=== PATIENT | male | born 1950 | race Caucasian/White ===

== ENCOUNTER 2019-03-03 01:19 | Outpatient (CLI) | payer OTHER, SELFPAY ==
--- NOTE | 2019-03-03 10:19 | DI.CT_ITS ---
EXAM: CT HEAD WO CLINICAL HISTORY: BLACKOUTS PERIODICALLY, WEEKLY, HEADACHES. TECHNIQUE: COMPARISON: No exams were available for comparison FINDINGS: Noncontrast enhanced examination was performed. There is no evidence of an intra or extra-axial hemo rrhage. Earl-white matter distinction is preserved. There is nothing to suggest a territorial infar ct. The ventricles are unremarkable. There is no skull fracture. The paranasal sinuses are intact the mastoid air cells are preserved. No acute intracranial abnormality is demonstrated. If there is further strong specific clinical question regarding the status of this patient then a follow up MRI could be considered. . IMPRESSION:
== END 2019-03-03 01:39 ==
PROVIDERS: PCP Internal Medicine; Visit Provider Physician Assistant Medical
DX: R51 Headache (principal); R55 Syncope and collapse
CPT/HCPCS: 70450

== ENCOUNTER 2021-01-11 04:07 | Outpatient (CLI) | payer OTHER, SELFPAY ==
--- NOTE | 2021-01-17 13:06 | PDOC.EEG ---
Neurology EEG EEG: [facility] Department of Neurology EEG REPORT Date of Recordin01/11/21 Interpreting Physician: Dr. Elle Sierra PCP/Referring Provider: Dr. Chava Dove Reason for study: Mr. Dave is a 70 year-old man with a history of recurrent spells, concerning for seizure. Current Medications: Donepezil 10mg, duloxetine 60mg daily, Entanercept injections, methotrexate, pravastatin, tamsulosin. METHODS: A 21 channel digitized electroencephalogram was performed in the [facility]iology Laboratory. The 10/20 international system of electrode placement was used and bipolar and referential electrode montages were recorded. In addition to EEG the patient was monitored for EKG and lateral/vertical eye movements. Activation procedures of photic stimulation and hyperventilation were performed if applicable. Video was used during activation procedures and during events where applicable. The duration of the recording was 30 minutes. DESCRIPTION OF EEG: The patient was noted to be awake, drowsy, and asleep during the recording. During maximal wakefulness no discernible posterior background rhythm was present due to very low amplitudes throughout. This improved with drowsiness and sleep during which normal amplitudes were seen. During drowsiness, there was attenuation of the posterior dominant background rhythm and vertex waves. No stage II sleep was recorded. Activating Procedures: Photic stimulation was performed which produced a symmetrical posterior driving response at various flash frequencies. Hyperventilation was not performed due to age. EKG: EKG revealed normal sinus rhythm. INTERPRETATION: This EEG is normal during the awake and sleep states as well as during photic stimulation. PRIOR EEG: none CLINICAL CORRELATION: No focal regions of cerebral dysfunction or epileptiform activity was present. Epilepsy remains a clinical diagnosis and a normal EEG does not rule out epilepsy. Clinical correlation is advised. Elle Sierra MD
== END 2021-01-11 04:08 | disposition home or self-care (01) ==
LOC: RT 04:09
PROVIDERS: PCP Internal Medicine; Visit Provider Psychiatry & Neurology Neurology
DX: R29.818 Other symptoms and signs involving the nervous system (principal); R56.9 Unspecified convulsions
CPT/HCPCS: 95819

== ENCOUNTER 2022-01-21 15:30 | Emergency (ER) | payer OTHER, SELFPAY ==
--- NOTE | 2022-01-21 15:30 | DI.CT_ITS ---
Exam(s) CT CHEST/ABD/PEL W EXAM: CT CHEST/ABD/PEL W CLINICAL HISTORY: fall from tractor, left chest and abdominal pain. TECHNIQUE: Imaging Protocol: Axial computed tomography images with coronal and sagittal reformatted images were created and reviewed CONTRAST MATERIAL: Intravenous: Omnipaque 350 Contrast volume:100 ml Oral: None COMPARISON: CT RENAL COLIC WO CONTRAST from 02/24/2013 FINDINGS: CHEST: LUNGS: No evidence of lung contusion or pleural effusion or pneumothorax. No incidental lung masses. No significant findings in the trachea and mainstem bronchi.. MEDIASTINUM: No sternal fracture. Significant degenerative changes noted at the right sternoclavicul ar joint. No evidence of mediastinal hematoma. No hilar nor mediastinal adenopathy. Visualized thy roid unremarkable. CARDIAC: Heart size is normal. There is no pericardial effusion.Caliber thoracic aorta is within nor mal limits. No evidence of significant aortic trauma nor dissection. No mediastinal hematoma. OSSEOUS: There is fragmentation of the a chromium of the right shoulder. Correlation with site of te nderness recommended. This may be not posttraumatic but possibly related to an element of os acromia le. Similar findings are not seen on the opposite-left side. No actual clavicle fracture. No other scapular findings. No rib fractures.No osseous lesions.. ABDOMEN: There is no ascites. No evidence of bowel wall nor mesenteric hematoma. No free fluid nor free air. LIVER: No a patent laceration nor other focal findings in the liver. No dilated intrahepatic ducts. GALLBLADDER/BILIARY: Gallbladder not seen and is probably surgically absent (no clips). CBD is not d ilated. PANCREAS: No evidence of pancreatic mass nor dilatation of the pancreatic duct. SPLEEN: No splenic lacerations. No perisplenic fluid. Spleen size normal. No splenic lesions. Spl enic and portal veins are patent. Splenic and portal veins are patent. ADRENALS: There are no significant adrenal masses. KIDNEYS: No evidence of significant renal trauma. No renal lacerations nor subcapsular hematomas. I ncidentally noted is developmental mild rotation of the right kidney. The right renal pelvis is loca fariha anterolaterally. No hydronephrosis on either side. No calculi. No obvious abnormalities in the urinary bladder although the prostate is enlarged.. ABDOMINAL AORTA: Abdominal aorta exhibits mild fusiform dilatation. Maximum diameter, however, is le ss than 2.5 cm. No significant aneurysm is evident in the iliac arteries and common femoral arteries . LYMPH NODES: There is no retroperitoneal nor paraaortic adenopathy. ABDOMINAL WALL: No evidence of significant anterior abdominal wall nor inguinal hernia. GI: There is no evidence of bowel obstruction. PELVIS: LYMPH NODES: There is no intrapelvic nor inguinal adenopathy. GI: No evidence of appendicitis.Extensive sigmoid diverticulosis. No obvious acute diverticulitis. No free fluid. URINARY BLADDER: No calculi nor masses evident REPRODUCTIVE: Enlarged prostate gland. OSSEOUS: There are acute appearing fractures of the left transverse processes of L1, L2, and L3, with minimal displacement. There is no prominent paraspinal hematoma in this region. Slight indentation of the superior endplates of T1 and T2, probably not acute. Advanced disc space n arrowing at L3-4 noted. Also with an element of bilateral foraminal stenosis at this level due to th e vertical height loss. IMPRESSION: 1. There are acute fractures of the left transverse process is of L1, L2, L3. No large hematoma. 2. No significant trauma sequela in the left kidney nor elsewhere in the abdomen and pelvis. 3. 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 4. Mild indentation of superior endplates of T1 and T2 noted, not having an obvious acute appearance. Correlation with site of tenderness recommended. Study 1st read by [facility]. RADIATION DOSE DELIVERED: 1167.46 mGy.cm Total DLP DATA REPOSITORY: All CT scans at this facility are submitted to the National Radiology Data Registry (NRDR) Dose Index Registry (DIR) with the [employer] (A[employer]). RADIATION OPTIMIZATION: All CT scans at this facility use at least one of these dose optimization te chniques: automated exposure control; mA and/or kV adjustment per patient size (includes targeted exa ms where dose is matched to clinical indication); or iterative reconstruction.
[2022-01-21 15:34] VITALS: BP 126/68; PULSE 68; RESP 16; TEMP 36.7; O2SAT 96
--- NOTE | 2022-01-21 15:36 | DI.CT_ITS ---
Exam(s) CT HEAD CERVICAL SPINE WO EXAM: CT HEAD CERVICAL SPINE WO CLINICAL HISTORY: fall from tractor, roll down hill, headache. TECHNIQUE: Imaging Protocol: Axial computed tomography images with coronal and sagittal reformatted images were created and reviewed COMPARISON: CT CT HEAD WO from 03/03/2019 FINDINGS: BRAIN: There are no skull fractures nor fluid in the visualized paranasal sinuses. There is no evidence of intracranial hemorrhage, mass effect, or shift of midline structures. There are no extra-axial fluid collections. The ventricles are not enlarged or shifted and there is no blo od within the ventricular system nor within the basal cisterns. CERVICAL SPINE: There is no evidence of fracture nor listhesis of the cervical vertebrae. No significant prevertebra l soft tissue swelling. There is slight loss of height of superior endplate of T1 which is the lowest vertebra completely inc luded in the field of view of this study This may not be acute. There is an advanced disc space narrowing at C 3-4, C4-5, C5-6 and C6-7 levels. Bilateral Luschka yas int osteophytes at multiple levels noted. There is some facet arthropathy but no facet malalignment. There is no significant facet joint malalignment. No significant osseous lesions evident. IMPRESSION: No acute intracranial findings on this noninfused CT scan of the brain.No evidence of intracranial he morrhage, intra or extra-axial. No evidence of cervical spine fracture, malalignment, nor acute compromise of the cervical spinal can al. However, there is slight loss of height of superior endplate of T1 noted, possibly not acute. Correlation with site of tenderness recommended. RADIATION DOSE DELIVERED: 1,377.46mGy.cm Total DLP DATA REPOSITORY: All CT scans at this facility are submitted to the National Radiology Data Registry (NRDR) Dose Index Registry (DIR) with the [employer] (ACR). RADIATION OPTIMIZATION: All CT scans at this facility use at least one of these dose optimization te chniques: automated exposure control; mA and/or kV adjustment per patient size (includes targeted exa ms where dose is matched to clinical indication); or iterative reconstruction.
--- NOTE | 2022-01-21 15:41 | DI.CT_ITS ---
Exam(s) CT THORACIC LUMBAR SPINE REC EXAM: CT THORACIC LUMBAR SPINE REC CLINICAL HISTORY: fall from tractor, roll down hill TECHNIQUE: COMPARISON: CT CT CHEST/ABD/PEL W from 01/21/2022 FINDINGS: THORACIC SPINAL COLUMN: There is mild indentation of the superior endplates of T1 and T2, not having acute appearance. No fa cet malalignment. LUMBOSACRAL SPINAL COLUMN: There are acute appearing fractures of the left transverse process of L1, L2, and L3. No large adjac ent hematoma. Fractures do not extend to involve the spinal canal. Multilevel disc space narrowing in the mid and upper lumbar spines. Also Schmorl's node invagination superior endplate of L4 at L5. IMPRESSION: 1. There are minimally displaced fractures of the left transverse process of L1, L2, and L3. These h ave acute appearance but no prominent surrounding hematoma. No other lumbar spine fractures identifi ed 2. Thoracic spine findings as above which are probably not acute. Correlation with site of tendernes s recommended. Findings called by myself to ER provider Sunday01/21/2022 5:20 p.m.
[2022-01-21 15:49] LABS: Abs Immature Grans 0.02 10^3/uL (0.0-0.06); Absolute Basophil Count 0.05 10^3/uL (0.0-0.2); Absolute Eosinophil Count 0.24 10^3/uL (0.0-0.7); Absolute Lymphocyte Count 1.41 10^3/uL (1.2-3.4); Absolute Monocyte Count 0.53 10^3/uL (0.1-0.8); Absolute Neutrophil Count 3.51 10^3/uL (1.2-6.7); Basophils % 0.9; Eosinophils % 4.2; HCT 35.2 % (40.0-50.0); HGB 12.3 g/dL (13.5-17.5); Immature Grans % 0.3; Lymphocytes % 24.5; MCH 32.2 pg (27.0-33.0); MCHC 34.9 % (32.0-36.0); MCV 92 fL (80-95); MPV 9.7 fL (8.0-11.0); Monocytes % 9.2; Neutrophils % 60.9; Platelet Count 178 10^3/uL (130-400); RBC 3.82 10^6/uL (4.36-5.78); RDW 13.8 % (11.8-14.1); RDW-SD 45.7 fL; WBC 5.76 10^3/uL (4.4-10.8)
[2022-01-21] MEDS: Omnipaque 350 MG/ML 100 ML BTL IJ (16:04)
[2022-01-21] MEDS: Normal Saline Flush 10 ML SYR IVP (16:05)
[2022-01-21 16:11] LABS: ALT 33 U/L (16-63); AST 33 U/L (15-37); Albumin 3.9 g/dL (3.4-5.0); Alkaline Phosphatase 40 U/L (46-116); Anion Gap 6.5 mmol/L (3-11); BUN 16 mg/dL (7-18); Bilirubin, Total 0.7 mg/dL (0.2-1.0); CO2 27.5 mmol/L (21.0-32.0); CREATININE 0.9 mg/dL (0.70-1.30); Calcium 8.5 mg/dL (8.5-10.1); Chloride 106 mmol/L (98-107); Glucose 112 mg/dL (74-106); Potassium 3.7 mmol/L (3.5-5.1); Sodium 140 mmol/L (136-145); Total Protein 6.7 g/dL (6.4-8.2)
[2022-01-21] MEDS: Ondansetron 4 MG/2 ML VIAL IVP (16:17)
[2022-01-21] MEDS: ACETAMINOPHEN 1,000 MG/100 ML BTL 400 MG IVPB (16:17)
--- NOTE | 2022-01-21 16:17 | DI.VRAD_ITS ---
PROCEDURE INFORMATION: Exam: CT Head Without Contrast Exam date and time: 01/21/2022 3:50 PM Age: 71 years old Clinical indication: Other: Fall from tractor, roll down hill, headache TECHNIQUE: Imaging protocol: Computed tomography of the head without contrast. Radiation optimization: All CT scans at this facility use at least one of these dose optimization techniques: automated exposure control; mA and/or kV adjustment per patient size (includes targeted exams where dose is matched to clinical indication); or iterative reconstruction. COMPARISON: CT HEAD WO 03/03/2019 10:21 AM FINDINGS: Brain: No shift, mass, mass effect, or acute hemorrhage. Mild chronic small vessel lucency of the calderon and centrum white matter, stable. No subdural hematoma. Cerebral ventricles: No unusual ventriculomegaly for age. Pituitary gland and sella: No obvious mass or expansile change. Empty sella normal variation. Paranasal sinuses: Visualized sinuses are unremarkable. No fluid levels. Mastoid air cells: Visualized mastoid air cells are well aerated. Orbital cavities: Unremarkable by this method. Bones/joints: Unremarkable. No acute fracture. No destructive lesion. Soft tissues: Unremarkable. Vasculature: Moderate carotid siphon calcification. IMPRESSION: No acute intracranial abnormality. PROCEDURE INFORMATION: Exam: CT Cervical Spine Without Contrast Exam date and time: 01/21/2022 3:50 PM Age: 71 years old Clinical indication: Other: Fall from tractor, roll down hill, headache TECHNIQUE: Imaging protocol: Computed tomography of the cervical spine without contrast. Radiation optimization: All CT scans at this facility use at least one of these dose optimization techniques: automated exposure control; mA and/or kV adjustment per patient size (includes targeted exams where dose is matched to clinical indication); or iterative reconstruction. COMPARISON: CT HEAD WO 03/03/2019 10:21 AM FINDINGS: Bones/joints: No acute cervical fracture. Superior endplate depression of T1 vertebral body with mild wedging is associated with Schmorl's node, described separately. [id number] multilevel spondylotic disc protrusions. No severe spinal canal stenosis. Mastoid air cells: Visualized mastoid compartments and skull base are unremarkable. Lungs: Lung apices are normal. Thyroid: No obvious nodule. Lymph nodes: No visualized significant adenopathy or neck mass. Incidental calcific tonsillith right palatine region. Soft tissues: Unremarkable. IMPRESSION: No acute cervical spine findings. Dictated and Authenticated by: Chris Leonard MD. Ordering:HENRIQUE Person MD
[2022-01-21 16:18] VITALS: BP 127/68; PULSE 52; RESP 16; O2SAT 100
--- NOTE | 2022-01-21 16:32 | DI.VRAD_ITS ---
PROCEDURE INFORMATION: Exam: CT Chest With Contrast; Diagnostic Exam date and time: 01/21/2022 3:59 PM Age: 71 years old Clinical indication: Other: Fall from tractor left chest and abdominal pain TECHNIQUE: Imaging protocol: Diagnostic computed tomography of the chest with contrast. Radiation optimization: All CT scans at this facility use at least one of these dose optimization techniques: automated exposure control; mA and/or kV adjustment per patient size (includes targeted exams where dose is matched to clinical indication); or iterative reconstruction. Contrast material: OMNIPAQUE 350; Contrast volume: 100 ml; Contrast route: INTRAVENOUS (IV); COMPARISON: CT HEAD CERVICAL SPINE WO 01/21/2022 3:50 PM FINDINGS: Lungs: Unremarkable. No consolidation. No masses. Pleural spaces: Unremarkable. No pneumothorax. No pleural effusion. Heart: Unremarkable. No cardiomegaly. No pericardial effusion. Lymph nodes: Unremarkable. No enlarged lymph nodes. Vasculature: Mild atherosclerotic change present in the vasculature. Bones/joints: Unremarkable. No acute fracture. Soft tissues: Unremarkable. IMPRESSION: No evidence for acute posttraumatic abnormality. PROCEDURE INFORMATION: Exam: CT Abdomen And Pelvis With Contrast Exam date and time: 01/21/2022 3:59 PM Age: 71 years old Clinical indication: Other: Fall from tractor left chest and abdominal pain TECHNIQUE: Imaging protocol: Computed tomography of the abdomen and pelvis with contrast. Radiation optimization: All CT scans at this facility use at least one of these dose optimization techniques: automated exposure control; mA and/or kV adjustment per patient size (includes targeted exams where dose is matched to clinical indication); or iterative reconstruction. Contrast material: OMNIPAQUE 350; Contrast volume: 100 ml; Contrast route: INTRAVENOUS (IV); COMPARISON: CT RENAL COLIC WO CONTRAST 02/24/2013 11:06 PM FINDINGS: Liver: Mild fatty liver. Gallbladder and bile ducts: Gallbladder contracted. Pancreas: Normal. No ductal dilation. Spleen: Normal. No splenomegaly. Adrenal glands: Normal. No mass. Kidneys and ureters: Right kidney ptotic, anatomic variant. Renal perfusion symmetric without hydronephrosis or hydroureter. Stomach and bowel: Unremarkable. No obstruction. No mucosal thickening. Appendix: No evidence of appendicitis. Intraperitoneal space: Unremarkable. No free air. No significant fluid collection. Vasculature: Moderate atherosclerotic change present in the vasculature. Lymph nodes: Unremarkable. No enlarged lymph nodes. Urinary bladder: Unremarkable as visualized. Reproductive: Unremarkable as visualized. Bones/joints: Unremarkable. No acute fracture. Soft tissues: Unremarkable. IMPRESSION: No evidence for acute posttraumatic abnormality. Dictated and Authenticated by: Judith Yeager MD. Ordering:HENRIQUE Person MD
--- NOTE | 2022-01-21 16:42 | DI.VRAD_ITS ---
PROCEDURE INFORMATION: Exam: CT Thoracic Spine Without Contrast Exam date and time: 01/21/2022 3:59 PM Age: 71 years old Clinical indication: Other: Fall from tractor, roll down hill TECHNIQUE: Imaging protocol: Computed tomography of the thoracic spine without contrast. Radiation optimization: All CT scans at this facility use at least one of these dose optimization techniques: automated exposure control; mA and/or kV adjustment per patient size (includes targeted exams where dose is matched to clinical indication); or iterative reconstruction. COMPARISON: CT HEAD CERVICAL SPINE WO 01/21/2022 3:50 PM FINDINGS: Bones/joints: No acute fracture. Superior endplate depression of T1 vertebral body is associated with degenerative Schmorl's node without acute fracture lucency evident slight anterolisthesis grade 1 C7-T1 and T1-2. Degenerative endplate Schmorl's node formation T5 through T11, with mild chronic height loss of T7 through T11 vertebral bodies. No significant disc protrusion. No severe spinal canal stenosis. Soft tissues: Moderate aortoiliac calcification without aneurysm. Sigmoid diverticulosis. Prostate enlargement.. IMPRESSION: No acute thoracic spine fracture. PROCEDURE INFORMATION: Exam: CT Lumbar Spine Without Contrast Exam date and time: 01/21/2022 3:59 PM Age: 71 years old Clinical indication: Other: Fall from tractor, roll down hill TECHNIQUE: Imaging protocol: Computed tomography of the lumbar spine without contrast. Radiation optimization: All CT scans at this facility use at least one of these dose optimization techniques: automated exposure control; mA and/or kV adjustment per patient size (includes targeted exams where dose is matched to clinical indication); or iterative reconstruction. COMPARISON: CT RENAL COLIC WO CONTRAST 02/24/2013 11:06 PM FINDINGS: Bones/joints: No acute vertebral body or posterior element fracture. There are multiple left-sided contiguous transverse process fractures are not significantly displaced beginning at L1 and extending through L4. Multilevel degenerative endplate Schmorl node formation throughout. Multilevel spondylotic disc protrusions, vacuum disc phenomena L1-L2 and L2-L3, without severe spinal canal stenosis. Sacrum appears intact. Soft tissues: As above. IMPRESSION: Acute contiguous left-sided transverse process fractures L1 through L4. Dictated and Authenticated by: Chris Leonard MD. Ordering:HENRIQUE Person MD
--- NOTE | 2022-01-21 17:58 | ED.GENADUL_ITS ---
Discharge Plan Disposition Patient Disposition: HOME Condition: Stable Discharge Details Clinical Impression: Fall, Fracture of transverse process of lumbar vertebra Primary Care Provider: David Ferrera ED Provider: Raza Sauceda Home Meds and New Rx's Prescriptions: New lidocaine [Lidoderm] 5 % adhesive patch,medicated 1 patch topical DAILY Qty: 15 0RF Rx Instructions: leave on most painful area for up to 12 hrs cyclobenzaprine 10 mg tablet 10 mg PO HS PRN (Reason: muscle spasm) Qty: 7 0RF No Action latanoprost 2.5 ML drops 1 drp Ophthalmic DAILY acetaminophen [Tylenol Arthritis] 650 MG tablet extended release 650 mg PO PRN Discharge Instructions Instructions: Transverse Process Fracture (ED) Additional Instructions: Please use ibuprofen and/or acetaminophen as well as prescriptions as needed for pain. Please return to the emergency department for any worsening symptoms such as chest pain abdominal pain nausea vomiting weakness or numbness change in sensation or other abnormal symptoms. Follow-up with your primary care physician. Medical Decision Making 71-year-old male presents after fall from tractor and then fall down an emb ankment, no crush injuries, no loss of consciousness, left flank pain left flank abrasion, does have midline lumbar spinal tenderness. Trauma imaging was obtained including a CT head and CT spine given distracting injuries and headache as well as midline lumbar tenderness. Patient is alert and oriented GCS of 15 maintaining airway no respiratory distress warm well perfused extremities normotensive hemodynamic stable, evidence of 3 transverse process fractures of the lumbar spine, no intrathoracic or intra-abdominal trauma. No intracranial trauma or cervical spine or thoracic spine injury. Patient is feeling much better after medications. Family is here at the bedside. Remains alert and oriented hemodynamically stable. Patient wishes to go home. Will prescribe muscle relaxant and lidocaine patch. Patient has a lumbar brace at home from a prior injury that he wishes to use. Given home care instructions and return precautions. HPI General Date/Time Provider Initiated Documentation: 01/21/22 15:33 . HPI Narrative: 71-year-old male presents after fall from tractor, patient then fell down an embankment on his side, no loss of conscious. Denies blood thinner use. Pain over his left flank also headache. Related Data Home Medications Medication Instructions Recorded Confirmed acetaminophen 650 mg 650 mg PO PRN 10/04/12 04/14/13 tablet,extended release (Tylenol Arthritis) latanoprost 0.005 % eye drops 1 drp ophthalmic (eye) DAILY 10/04/12 04/14/13 cyclobenzaprine 10 mg tablet 10 mg PO HS PRN muscle spasm #7 01/21/22 tabs lidocaine 5 % topical patch 1 patch topical DAILY #15 ea 01/21/22 (Lidoderm) Previous Rx's Medication Instructions Recorded cyclobenzaprine 10 mg tablet 10 mg PO HS PRN muscle spasm #7 01/21/22 tabs lidocaine 5 % topical patch 1 patch topical DAILY #15 ea 01/21/22 (Lidoderm) Allergies Allergy/AdvReac Type Severity Reaction Status Date / Time morphine AdvReac Mild HALLUNCINAT Unverified 10/08/13 09:22 IONS General Stated Complaint: Trauma ELSIE: 3 Review of Systems Narrative: Review of Systems Constitutional: negative Eyes: negative ENT: negative Cardiovascular: negative Respiratory: negative Gastrointestinal: negative : negative Musculoskeletal: Flank pain Skin: negative Neurologic: Headache Psych: negative PFSH All Active Problems (Updated 01/21/22 @ 18:02 by Raza Sauceda MD) Fall (Acute) Fracture of transverse process of lumbar vertebra (Acute) Medical History (Updated 01/21/22 @ 18:02 by Raza Sauceda MD) Arthritis PTSD (post-traumatic stress disorder) Surgical History (Updated 03/13/18 @ 14:35 by [employer] [place]) 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 Social History Smoking/Tobacco Use Status: Former Tobacco Use Smoking risk assessment performed?: Yes Alcohol Intake: never Drug use: Never Substance use type: does not use Do you feel safe at home: Yes Do you feel safe in your relationship?: Yes Exam Narrative Exam Narrative: Physical Examination General: alert, awake, cooperative, resting comfortably, no acute distress HEENT: normocephalic, atraumatic; PERRL, EOM intact, conjunctiva normal; no nasal discharge; moist mucous membranes, oral and pharyngeal mucosa normal, tolerating secretions Neck: supple, trachea midline; in c-collar no midline cervical tenderness Chest: normal to inspection Respiratory: normal respiratory effort, speaking in full sentences, clear to auscultation, no wheezing, rales or rhonchi Cardiac: regular rate, regular rhythm, S1S2 intact, no murmurs rubs or gallops GI: abdomen soft, non-tender, non-distended; no palpable mass or hepatosplenomegaly Back: Patient has midline lumbar discomfort without crepitus or deformity Skin: Superficial abrasions over left flank Neuro: AAOx3, normal speech, moving all extremities; 5 out of 5 strength upper and lower extremities Extremities: Full range of motion of all extremities no deformities Psych: Appropriate mood and affect Course Vital Signs Vital signs: Vital Signs Temperature 36.7 C 01/21/22 15:34 Pulse 68 01/21/22 15:34 Respiratory Rate 16 01/21/22 15:34 Blood Pressure 126/68 01/21/22 15:34 Pulse Oximetry 96 01/21/22 15:34 Temperature 36.7 C 01/21/22 15:34 Temperature Source Temporal Artery Scan 01/21/22 15:34 Pulse 52 L 01/21/22 16:18 Respiratory Rate 16 01/21/22 16:18 Respiratory Effort Non-Labored 01/21/22 15:40 Respiratory Depth Normal 01/21/22 15:40 Respiratory Pattern Normal 01/21/22 15:40 Blood Pressure 127/68 01/21/22 16:18 Blood Pressure Position Supine 01/21/22 15:34 Pulse Oximetry 100 01/21/22 16:18 Oxygen Delivery Method Room Air 01/21/22 16:18 Oxygen Flow Rate 0 01/21/22 16:18 Pain Level 9 01/21/22 15:34 Lab/Test Results Lab/Test Results: Laboratory Tests Range/Units 01/21/22 01/21/22 15:20 15:20 WBC (4.4-10.8) 10^3/uL 5.76 RBC (4.36-5.78) 10^6/uL 3.82 L Hgb (13.5-17.5) g/dL 12.3 L Hct (40.0-50.0) % 35.2 L MCV (80-95) fL 92 MCH (27.0-33.0) pg 32.2 MCHC (32.0-36.0) % 34.9 RDW (11.8-14.1) % 13.8 Plt Count (130-400) 10^3/uL 178 MPV (8.0-11.0) fL 9.7 Immature Gran % 0.3 Neutrophils % 60.9 Lymphocytes % 24.5 Monocytes % 9.2 Eosinophils % 4.2 Basophils % 0.9 Nucleated RBC % (0.0-0.3) % 0.0 Absolute Neutrophils (1.2-6.7) 10^3/uL 3.51 Absolute Lymphocytes (1.2-3.4) 10^3/uL 1.41 Absolute Monocytes (0.1-0.8) 10^3/uL 0.53 Absolute Eosinophils (0.0-0.7) 10^3/uL 0.24 Absolute Basophils (0.0-0.2) 10^3/uL 0.05 Sodium (136-145) mmol/L 140 Potassium (3.5-5.1) mmol/L 3.7 Chloride (98-107) mmol/L 106 Carbon Dioxide (21.0-32.0) mmol/L 27.5 Anion Gap (3-11) mmol/L 6.5 BUN (7-18) mg/dL 16 Creatinine (0.70-1.30) mg/dL 0.9 Estimated GFR/1.73 m2 (mL/min/1.73m2) >= 60.00 Glucose (74-106) mg/dL 112 H Calcium (8.5-10.1) mg/dL 8.5 Total Bilirubin (0.2-1.0) mg/dL 0.7 AST (15-37) U/L 33 ALT (16-63) U/L 33 Alkaline Phosphatase (46-116) U/L 40 L Total Protein (6.4-8.2) g/dL 6.7 Albumin (3.4-5.0) g/dL 3.9
[2022-01-21 18:20] VITALS: BP 132/69; PULSE 47; RESP 18; O2SAT 99
== END 2022-01-21 18:33 | disposition home or self-care (01) ==
PROVIDERS: Emergency Provider Emergency Medicine; PCP Internal Medicine
DX: S32.008A Other fracture of unspecified lumbar vertebra, initial encounter for closed fracture (principal); Z87.891 Personal history of nicotine dependence; V89.9XXA Person injured in unspecified vehicle accident, initial encounter; Y92.89 Other specified places as the place of occurrence of the external cause
CPT/HCPCS: 74177; 80053; 96374; 96375; 99285; 70450; 71260; 72125; 85025; 99284; J0131; J2405; J3490

== ENCOUNTER 2022-03-05 10:39 | Emergency (ER) | payer MEDICARE, OTHER, SELFPAY ==
[2022-03-05 10:44] VITALS: BP 130/107; PULSE 63; RESP 18; TEMP 36.9; O2SAT 97
--- NOTE | 2022-03-05 11:41 | ED.GENADUL_ITS ---
Discharge Plan Disposition Patient Disposition: HOME Condition: Stable Discharge Details Clinical Impression: Cellulitis, Cat bite Primary Care Provider: David Ferrera ED Provider: Albina Clay Home Meds and New Rx's Prescriptions: New amoxicillin-pot clavulanate 875-125 mg tablet 1 tab PO BID Qty: 20 0RF Continued latanoprost 2.5 ML drops 1 drp Ophthalmic DAILY acetaminophen [Tylenol Arthritis] 650 MG tablet extended release 650 mg PO PRN lidocaine [Lidoderm] 5 % adhesive patch,medicated 1 patch topical DAILY Qty: 15 0RF Rx Instructions: leave on most painful area for up to 12 hrs cyclobenzaprine 10 mg tablet 10 mg PO HS PRN (Reason: muscle spasm) Qty: 7 0RF prazosin 5 mg Capsule 20 mg PO HS tamsulosin 0.4 mg Capsule 0.4 mg PO DAILY celecoxib 100 mg Capsule 1,000 mg PO DAILY methotrexate 2.5 mg/mL Solution 2.5 mg PO 7XD duloxetine 60 mg Capsule, Delayed Rel Sprinkle 60 mg PO DAILY Discharge Instructions Instructions: Cellulitis (ED) Additional Instructions: Elevate your hand above your heart is much as possible, use the sling Take Tylenol as needed for pain or ibuprofen You must be reevaluated tomorrow, the orthopedic office will call you Take antibiotic as prescribed Yogurt daily while on the antibiotic Return earlier should he develop fever, chills, or with any new or worsening complaints Of note, your infection will likely look worse before it improves, as the antibiotic does take time to become therapeutic Referrals: Logan Novak MD [ [facility] STAFF PHYSICIAN] - 1 day David Ferrera [Primary Care Provider] - Discharge Data Discharge Date/Time-TO BE ENTERED AT DEPARTURE: 03/05/22 15:03 Medical Decision Making <CRYSTAL Holland - Last Filed: 03/07/22 09:34> Patient appears well, his labs do not show evidence of significant abnormality specifically no leukocytosis or evidence of sepsis Case discussed with Dr. Novak who will see patient in in the office tomorrow Placed in a splint and on Augmentin Given rabies vaccination and immunoglobulin Strict return precautions discussed and patient expressed understanding X-ray display soft tissue swelling without evidence of significant Or foreign body overlying area of puncture Nancy Piburn 03/06/22 Please see Albina Clay note from yesterday. Patient bit by what they have now identified as her neighbors cat, was started on rabies vaccine schedule as well as Augmentin for cat bite to the hand. I have completed the rabies vaccine sched uling paperwork. The patient is on methotrexate, have asked the patient get another 4 doses. I also called and spoke with the patient and his regarding the continued dosing schedule. They are calling orthopedics as was directed yesterday. I advised that they should be contacted by our infusion team but if not to call the hospital to schedule his upcoming vaccine appointments. Medical Records Medical records reviewed: Yes I reviewed the patient's medical records. Lab Data Lab results reviewed: Yes I reviewed the patient's lab results. <CRYSTAL Berry - Last Filed: 03/06/22 08:45> Nancy Silva 03/06/22 Please see Albina Clay note from yesterday. Patient bit by what they have now identified as her neighbors cat, was started on rabies vaccine schedule as well as Augmentin for cat bite to the hand. I have completed the rabies vaccine scheduling paperwork. The patient is on methotrexate, have asked the patient get another 4 doses. I also called and spoke with the patient and his regarding the continued dosing schedule. They are calling orthopedics as was directed yesterday. I advised that they should be contacted by our infusion team but if not to call the hospital to schedule his upcoming vaccine appointments. HPI <CRYSTAL Holland - Last Filed: 03/07/22 09:34> General Date/Time Provider Initiated Documentation: 03/05/22 11:39 . HPI Narrative: This 71-year-old male presents status post cat bite yesterday. Patient is chronically immunosuppressed from psoriatic arthritis and takes methotrexate daily. He states that x-ray Was dropped off at his house and a Individual and that he attempted to pet the cat up and it bit him. He states this occurred yesterday. He is unsure regarding rabies status. He presents today secondary to spreading redness and pain. Related Data Home Medications Medication Instructions Recorded Confirmed acetaminophen 650 mg 650 mg PO PRN 10/04/12 03/05/22 tablet,extended release (Tylenol Arthritis) latanoprost 0.005 % eye drops 1 drp ophthalmic (eye) DAILY 10/04/12 03/05/22 cyclobenzaprine 10 mg tablet 10 mg PO HS PRN muscle spasm #7 01/21/22 03/05/22 tabs lidocaine 5 % topical patch 1 patch topical DAILY #15 ea 01/21/22 03/05/22 (Lidoderm) amoxicillin 875 mg-potassium 1 tab PO BID #20 tabs 03/05/22 clavulanate 125 mg tablet celecoxib 100 mg capsule 1,000 mg PO DAILY 03/05/22 03/05/22 duloxetine 60 mg capsule,delayed 60 mg PO DAILY 03/05/22 03/05/22 release sprinkle methotrexate 2.5 mg/mL oral 2.5 mg PO 7XD 03/05/22 03/05/22 solution prazosin 5 mg capsule 20 mg PO HS 03/05/22 03/05/22 tamsulosin 0.4 mg capsule 0.4 mg PO DAILY 03/05/22 03/05/22 Previous Rx's Medication Instructions Recorded cyclobenzaprine 10 mg tablet 10 mg PO HS PRN muscle spasm #7 01/21/22 tabs lidocaine 5 % topical patch 1 patch topical DAILY #15 ea 01/21/22 (Lidoderm) amoxicillin 875 mg-potassium 1 tab PO BID #20 tabs 03/05/22 clavulanate 125 mg tablet Allergies Allergy/AdvReac Type Severity Reaction Status Date / Time gluten AdvReac Intermediate Unverified 03/05/22 13:25 morphine AdvReac Mild HALLUNCINAT Unverified 03/05/22 13:25 IONS General Stated Complaint: Cellulitis ELSIE: 4 Review of Systems <CRYSTAL Holland - Last Filed: 03/07/22 09:34> All systems reviewed & are unremarkable except as noted in HPI and below PFSH <CRYSTAL Holland - Last Filed: 03/07/22 09:34> All Active Problems (Updated 03/05/22 @ 14:22 by CRYSTAL Holland) Cellulitis (Acute) Cat bite (Acute) Medical History (Updated 03/05/22 @ 14:22 by CRYSTAL Holland) Arthritis PTSD (post-traumatic stress disorder) Surgical History (Updated 03/13/18 @ 14:35 by [employer] [place]) 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 Puncture noted x3, erythema overlying dorsum of the hand, decreased flexion with pain, capillary refill intact, sensation intact distally, no significant lymphangitis 2. 3. 4. Course <CRYSTAL Holland - Last Filed: 03/07/22 09:34> Vital Signs Vital signs: Vital Signs Temperature 36.9 C 03/05/22 10:44 Pulse 63 03/05/22 10:44 Respiratory Rate 18 03/05/22 10:44 Blood Pressure 130/107 H 03/05/22 10:44 Pulse Oximetry 97 03/05/22 10:44 Temperature 36.9 C 03/05/22 10:44 Temperature Source Oral 03/05/22 10:44 Pulse 63 03/05/22 10:44 Respiratory Rate 18 03/05/22 10:44 Blood Pressure 130/107 H 03/05/22 10:44 Blood Pressure Position Sitting 03/05/22 10:44 Pulse Oximetry 97 03/05/22 10:44 Oxygen Delivery Method Room Air 03/05/22 10:44 Oxygen Flow Rate 0 03/05/22 10:44 Pain Level 10 03/05/22 10:44 Lab/Test Results Lab/Test Results: 03/05/22 11:39 Blood Blood Culture - Pending 03/05/22 11:39 Blood Blood Culture - Pending Procedures <CRYSTAL Holland - Last Filed: 03/07/22 09:34> Orthopedic Splinting/Casting Injury #1: Side: right Upper Extremity Injury Location: wrist Upper Extremity Immobilizer: volar splint Additional Comments: Neurovascularly intact pre and postprocedure
[2022-03-05 12:07] LABS: Abs Immature Grans 0.02 10^3/uL (0.0-0.06); Absolute Basophil Count 0.03 10^3/uL (0.0-0.2); Absolute Eosinophil Count 0.18 10^3/uL (0.0-0.7); Absolute Lymphocyte Count 0.98 10^3/uL (1.2-3.4); Absolute Monocyte Count 1.04 10^3/uL (0.1-0.8); Absolute Neutrophil Count 7.75 10^3/uL (1.2-6.7); Basophils % 0.3; Eosinophils % 1.8; HCT 37.6 % (40.0-50.0); HGB 12.9 g/dL (13.5-17.5); Immature Grans % 0.2; Lymphocytes % 9.8; MCH 32.3 pg (27.0-33.0); MCHC 34.3 % (32.0-36.0); MCV 94 fL (80-95); MPV 9.6 fL (8.0-11.0); Monocytes % 10.4; Neutrophils % 77.5; Platelet Count 166 10^3/uL (130-400); RDW 13.7 % (11.8-14.1); RDW-SD 46.4 fL
[2022-03-05 12:11] LABS: ESR 9 mm/hr (0-20)
[2022-03-05] MEDS: Acetaminophen 325 MG TAB 650 MG PO (12:13)
[2022-03-05 12:27] LABS: ALT 25 U/L (16-63); AST 21 U/L (15-37); Albumin 3.9 g/dL (3.4-5.0); Alkaline Phosphatase 53 U/L (46-116); Anion Gap 5.4 mmol/L (3-11); BUN 15 mg/dL (7-18); Bilirubin, Total 0.9 mg/dL (0.2-1.0); C-Reactive Protein 1.47 mg/dL (0.0-0.3); CO2 29.6 mmol/L (21.0-32.0); CREATININE 0.9 mg/dL (0.70-1.30); Calcium 8.7 mg/dL (8.5-10.1); Chloride 103 mmol/L (98-107); Estimated GFR 91.31 (mL/min/1.73m2); Glucose 96 mg/dL (74-106); Sodium 138 mmol/L (136-145); Total Protein 7.2 g/dL (6.4-8.2)
--- NOTE | 2022-03-05 13:22 | DI.RAD_ITS ---
Exam(s) XR HAND RT COMPLETE EXAM: XR HAND RT COMPLETE CLINICAL HISTORY: cat bite, swelling TECHNIQUE: COMPARISON: No exams were available for comparison FINDINGS: Three views were obtained. There are severe degenerative changes of the DIP joints and also of the g reater multangular 1st metacarpal joint. There is no evidence of acute fracture or dislocation. No specific evidence of osteomyelitis by plain film criteria. IMPRESSION: RADIATION DOSE DELIVERED: Total DLP
[2022-03-05] MEDS: AMPICILLIN/SULBACTAM 3 GM in Normal Saline 100 ML IVPB (13:33)
--- NOTE | 2022-03-05 13:38 | NUR.NOTE ---
Albina requesting a consultation with Orthopaedics re: right hand cat bite with cellulitis, Albina spoke to Dr. Novak, ER visit 03/05/22, appt needed 03/06/22. CLB
[2022-03-05] MEDS: Rabies Immune Globulin 1,500 UNIT/5 ML VIAL 1500 UNITS IM (14:28)
--- NOTE | 2022-03-05 22:57 | NUR.NOTE ---
Animal bite form faxed to [facility] Health Officer Tyler Whitfield at [phone].Nursing Note:
--- NOTE | 2022-03-06 08:46 | NUR.NOTE ---
Nursing Note: Faxed to Infusion the Rabies Vaccine order sheet. Nancy ROJAS completed form. Day 3 is Feb 12 Day 7 is Feb 16 Day 14 is Mar 19 Day 28 is Apr 02
== END 2022-03-05 15:03 | disposition home or self-care (01) ==
PROVIDERS: Emergency Provider Physician Assistant; PCP Internal Medicine
DX: S61.451A Open bite of right hand, initial encounter (principal); L03.113 Cellulitis of right upper limb; Z23 Encounter for immunization; Z20.3 Contact with and (suspected) exposure to rabies; Z29.14 Encounter for prophylactic rabies immune globulin; W55.01XA Bitten by cat, initial encounter
CPT/HCPCS: 80053; 85652; 87040; 90471; 96365; 96372; 99284; 73130; 83605; 85025; 86140; 90675; J0295

== ENCOUNTER → 2022-03-08 09:52 | Outpatient (BNVA) | payer MEDICARE, OTHER, SELFPAY | PROVIDERS: Visit Provider Physician Assistant | DX: L03.113 Cellulitis of right upper limb (principal); W55.01XA Bitten by cat, initial encounter | CPT/HCPCS: 99214 ==

== ENCOUNTER → 2022-03-13 11:12 | Outpatient (BNVA) | payer MEDICARE, SELFPAY | PROVIDERS: Visit Provider Student in an Organized Health Care Education/Training Program | DX: S61.451A Open bite of right hand, initial encounter (principal); W55.01XA Bitten by cat, initial encounter | CPT/HCPCS: 99213 ==

== ENCOUNTER 2022-03-19 04:51 | Outpatient (RCR) | payer MEDICARE, SELFPAY | END 2022-03-27 23:59 | disposition home or self-care (01) | LOC: INF 04:51 | PROVIDERS: PCP Internal Medicine; Visit Provider Physician Assistant | DX: Z20.3 Contact with and (suspected) exposure to rabies (principal) | CPT/HCPCS: 90471; 96372; 90675 ==

== ENCOUNTER 2022-03-31 01:14 | Outpatient (RCR) | payer MEDICARE, SELFPAY | END 2022-04-26 23:59 | disposition home or self-care (01) | LOC: INF 01:14 | PROVIDERS: Visit Provider Physician Assistant | DX: Z20.3 Contact with and (suspected) exposure to rabies (principal) | CPT/HCPCS: 90471; 96372; 90675 ==

== ENCOUNTER 2022-11-29 21:44 | Outpatient (REF) | payer MEDICARE, SELFPAY | END 2022-11-29 21:45 | disposition home or self-care (01) | LOC: LBN 21:44 | PROVIDERS: Visit Provider Physician Assistant Medical | DX: L02.91 Cutaneous abscess, unspecified (principal) | CPT/HCPCS: 87077; 87070; 87186; 87205 ==

== ENCOUNTER 2023-06-08 10:32 | Emergency (ER) | payer OTHER, SELFPAY ==
[2023-06-08 10:35] VITALS: BP 119/69; PULSE 50; RESP 16; TEMP 36.6; O2SAT 96
--- NOTE | 2023-06-08 10:42 | ED.GENADUL_ITS ---
HPI General Stated Complaint: RespSymp Mode of arrival: ambulatory. ELSIE: 3 Date/Time Provider Initiated Documentation: 06/08/23 10:41. Limitations to Documentation: no limitations. Information obtained by: patient. History of Present Illness cough moderate 5 aching (when coughing) chest reports no radiation month(s) (Intermittently, constant x 1 week) constant No relieving factors improve symptom(s), Other factors that worsen symptoms (Gas fume exposure) cough and fever/chills (Intermittent fever, none now) none Related Data Home Medications Medication Instructions Recorded Confirmed acetaminophen 650 mg 650 mg PO PRN 10/04/12 06/08/23 tablet,extended release (Tylenol Arthritis) latanoprost 0.005 % eye drops 1 drp ophthalmic (eye) DAILY 10/04/12 06/08/23 cyclobenzaprine 10 mg tablet 10 mg PO HS PRN muscle spasm #7 01/21/22 06/08/23 tabs lidocaine 5 % topical patch 1 patch topical DAILY #15 ea 01/21/22 06/08/23 (Lidoderm) celecoxib 100 mg capsule 1,000 mg PO DAILY 03/05/22 06/08/23 duloxetine 60 mg capsule,delayed 60 mg PO DAILY 03/05/22 06/08/23 release sprinkle methotrexate 2.5 mg/mL oral 2.5 mg PO 7XD 03/05/22 06/08/23 solution prazosin 5 mg capsule 20 mg PO HS 03/05/22 06/08/23 tamsulosin 0.4 mg capsule 0.4 mg PO DAILY 03/05/22 06/08/23 azithromycin 250 mg tablet See Rx Instructions PO .COMPLEX #6 06/08/23 tabs Previous Rx's Medication Instructions Recorded cyclobenzaprine 10 mg tablet 10 mg PO HS PRN muscle spasm #7 01/21/22 tabs lidocaine 5 % topical patch 1 patch topical DAILY #15 ea 01/21/22 (Lidoderm) azithromycin 250 mg tablet See Rx Instructions PO .COMPLEX #6 06/08/23 tabs Allergies Allergy/AdvReac Type Severity Reaction Status Date / Time gluten AdvReac Intermediate Verified 06/08/23 10:38 morphine AdvReac Mild HALLUNCINAT Verified 06/08/23 10:38 IONS Review of Systems Constitutional Constitutional: Denies chills and Reports fever(s) (Intermittently) ENT Ears, Nose, Mouth, and Throat: Denies nasal discharge Cardiovascular Cardiovascular: Reports chest pain (Anterior chest wall with coughing) and Reports dyspnea (With excessive coughing) Respiratory Respiratory: Reports dyspnea (With excessive coughing) Gastrointestinal Gastrointestinal: Denies abdominal pain Musculoskeletal Musculoskeletal: Reports arthralgias (Chronic, rheumatoid arthritis) Integumentary/Breasts Skin/Breast: Denies rash PFSH All Active Problems Bronchitis (Acute) Medical History PTSD (post-traumatic stress disorder) Arthritis Surgical History 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 Social History Smoking/Tobacco Use Status: Former Tobacco Use Smoking risk assessment performed?: Yes Alcohol Intake: never Drug use: Never Substance use type: does not use Housing: house Current gender identity: male Do you feel safe at home: Yes Do you feel safe in your relationship?: Yes Exam Const General: cooperative, healthy appearing, comfortable and no acute distress Orientation: alert and awake HENMT Head: normal to inspection, normocephalic and atraumatic Mouth: moist mucous membranes Eyes Conjunctivae: conjunctivae normal Neck Neck: normal visual inspection, trachea midline and supple Chest Chest: normal palpation of entire chest wall Resp Effort & Inspection: normal respiratory effort, able to speak in complete sentences and cough Quality of cough: dry Auscultation: wheezes expiratory wheezes (Scattered, primarily clear with cough) Cardio Rate: regular rate Rhythm: regular rhythm Skin General skin exam: no rashes or lesions noted Neuro General: patient alert, patient awake and moves all extremities Extrem General: normal to inspection, no pedal edema and no calf tenderness Psych Appearance: grossly normal Mental Status: mental status grossly normal Course Vital Signs Vital signs: Vital Signs Temperature 36.6 C 06/08/23 10:35 Pulse 50 L 06/08/23 10:35 Respiratory Rate 16 06/08/23 10:35 Blood Pressure 119/69 06/08/23 10:35 Pulse Oximetry 96 06/08/23 10:35 Temperature 36.6 C 06/08/23 10:35 Temperature Source Oral 06/08/23 10:35 Pulse 50 L 06/08/23 10:35 Respiratory Rate 16 06/08/23 10:35 Blood Pressure 119/69 06/08/23 10:35 Pulse Oximetry 96 06/08/23 10:35 Oxygen Delivery Method Room Air 06/08/23 10:35 Oxygen Flow Rate 0 06/08/23 10:35 Medical Decision Making This is a 73-year-old gentleman with a past medical history of rheumatoid arthritis who takes methotrexate, presenting now for intermittent cough for the past few months. He states that occasionally has had some fever with a cough but none now. Cough has been mostly dry. He does report occasional wheezing, he has an inhaler that he can use as needed at home but is only used it once over the past 5 days. He denies any chest pain at rest. 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 He feels like his symptoms were exacerbated last week when he was working under his vehicle and was exposed to some gas fumes a few days in a row. He has been removed from those fumes for at least 5 or 6 days. Clinically he appears well, nontoxic, respirations of 16, afebrile, O2 sat 96% on room air. Heart rate in the low 50s, upon brief chart review patient appears to have baseline bradycardia. Plan to obtain chest x-ray to rule out potential pneumonia. Will also obtain flu, RSV, COVID swab. No need for albuterol neb treatment here as wheeze mostly clears with cough. Chest x-ray initially read by me confirmed by radiology as negative. No acute pulmonary process identified. No infiltrate or obvious pneumonia. Negative flu, RSV, COVID. Upon reevaluation patient is resting comfortably. Discussed workup and treatment plan with patient and family in length. Discussed the importance of using his albuterol inhaler 2 puffs every 4-6 hours as needed for the next week or so as he is actively symptomatic. Given the duration of his symptoms, occasional fever, patient is on immunosuppressant, I do believe treating with a Z-Adrian is reasonable. Patient was encouraged to return to the ER for new or evolving symptoms. Otherwise he will contact his primary care provider at the [facility] to discuss his ER visit, ongoing symptoms, and need for outpatient reevaluation. Medical Records Medical records reviewed: Yes I reviewed the patient's medical records. Quality:[facility] Health Related Social Needs: No Data to Display Discharge Plan Disposition Patient Disposition: Home Discharge Details Clinical Impression: Bronchitis Primary Care Provider: Unknown,Unknown ED Provider: Olayinka Smith [place] Meds and New Rx's Prescriptions: New azithromycin 250 mg tablet See Rx Instructions .ROUTE .COMPLEX Qty: 6 0RF Rx Instructions: For 250 mg dose pack: take 500 mg today (day 1), then 250 mg for 4 days (days 2-5) Continued latanoprost 2.5 ML drops 1 drp Ophthalmic DAILY acetaminophen [Tylenol Arthritis] 650 MG tablet extended release 650 mg PO PRN lidocaine [Lidoderm] 5 % adhesive patch,medicated 1 patch topical DAILY Qty: 15 0RF Rx Instructions: leave on most painful area for up to 12 hrs cyclobenzaprine 10 mg tablet 10 mg PO HS PRN (Reason: muscle spasm) Qty: 7 0RF prazosin 5 mg Capsule 20 mg PO HS tamsulosin 0.4 mg Capsule 0.4 mg PO DAILY celecoxib 100 mg Capsule 1,000 mg PO DAILY methotrexate 2.5 mg/mL Solution 2.5 mg PO 7XD duloxetine 60 mg Capsule, Delayed Rel Sprinkle 60 mg PO DAILY Discharge Instructions Instructions: Acute Bronchitis (ED) Additional Instructions: Chest x-ray is negative for pneumonia. Flu, RSV, COVID-negative. You likely have bronchitis. Please continue [id number] cough medication and I would like you to use your albuterol inhaler regularly every 6 hours for the next week or so while you are acutely symptomatic. Azithromycin as directed. Please watch for new or worsening symptoms and return to the ER for any concerns. Lastly, [facility] make [facility] aware [facility], ongoing symptoms, and need for outpatient reevaluation. Discharge Data Discharge Date/Time-TO BE ENTERED AT DEPARTURE: 06/08/23 13:30
--- NOTE | 2023-06-08 11:25 | DI.RAD_ITS ---
Exam(s) XR CHEST 2V PA LATERAL EXAM: XR CHEST 2V PA LATERAL CLINICAL HISTORY: cough TECHNIQUE: 2D digital imaging was performed of the chest. Three images were obtained. PA and later al views were obtained. COMPARISON: CR CHEST 2 VIEWS PA,LAT from 08/13/2010 FINDINGS: MEDIASTINUM: Normal. HEART: Normal. PULMONARY VASCULATURE: Normal. LUNGS: Clear. PLEURAL SPACE: No pleural effusion or pneumothorax. BONE:Within normal limits for the patient's age. OTHER FINDINGS:Normal. IMPRESSION: No acute pulmonary findings. DATA REPOSITORY: RADIATION DOSE DELIVERED:
[2023-06-08 11:40] LABS: COVID-19 PCR Negative (Negative); Influenza A PCR Negative (Negative); Influenza B PCR Negative (Negative); RSV PCR Negative (Negative)
[2023-06-08 11:43] LABS: Source Nasopharynx
[2023-06-08 13:25] VITALS: BP 114/69; PULSE 49; TEMP 37
== END 2023-06-08 13:30 | disposition home or self-care (01) ==
PROVIDERS: Emergency Provider Physician Assistant
DX: J40 Bronchitis, not specified as acute or chronic (principal); M06.9 Rheumatoid arthritis, unspecified; Z11.52 Encounter for screening for COVID-19; Z79.60 Long term (current) use of unspecified immunomodulators and immunosuppressants; Z87.891 Personal history of nicotine dependence
CPT/HCPCS: 87637; 99283; 71046

== ENCOUNTER 2023-07-08 14:31 | Emergency (ER) | payer OTHER, SELFPAY ==
[2023-07-08 14:40] VITALS: BP 173/98; PULSE 67; RESP 18; TEMP 36.7; O2SAT 99
--- NOTE | 2023-07-08 14:45 | DI.RAD_ITS ---
Exam(s) XR SHOULDER RT COMPLETE 2+V EXAM: XR SHOULDER RT COMPLETE 2+V CLINICAL HISTORY: Right shoulder pain. TECHNIQUE: 2D digital imaging was performed. Two views. COMPARISON: No exams were available for comparison FINDINGS: BONES: The humeral head is dislocated inferiorly and impacted on the glenoid. There is a defect in t he superior humeral head. Are chronic appearing bony densities beneath the acromion. Degenerative c hanges of the glenoid and AC joint. AC joint is not widened. No bony destructive lesion is seen. D egenerative subchondral cysts in the humeral head. SOFT TISSUE: Normal. IMPRESSION: Inferior dislocation of the humeral head with impaction on the inferior margin of the glenoid. DATA REPOSITORY: RADIATION DOSE DELIVERED:
--- NOTE | 2023-07-08 14:45 | DI.RAD_ITS ---
Exam(s) XR ELBOW RT COMPLETE EXAM: XR ELBOW RT COMPLETE CLINICAL HISTORY: Right elbow pain. TECHNIQUE: 2D digital imaging was performed. Three views. COMPARISON: No exams were available for comparison FINDINGS: BONES: No acute fracture is present. No bony destructive lesion is seen. JOINTS: The elbow is normally aligned. No joint effusion is seen. SOFT TISSUE: Normal. IMPRESSION: Unremarkable radiographs of the right elbow. DATA REPOSITORY: RADIATION DOSE DELIVERED:
--- NOTE | 2023-07-08 14:49 | ED.GENADUL_ITS ---
HPI General Date/Time Provider Initiated Documentation: 07/08/23 14:49 . HPI Narrative: MDM This is an overall very well-appearing normothermic and not tachycardic toblg-uvwv-smoyglsi 73-year-old male with remote rotator cuff surgery with concerns for proximal humerus fracture versus shoulder dislocation for which patient will receive x-rays. No head strike to suggest benefit from CT head. No midline cervical spinal tenderness to suggest cervical spinal fracture. No pain out of proportion to suggest necrotizing soft tissue infection. Patient does have slightly delayed capillary refill in his right hand but his hand is warm and he has a 2+ right radial pulse. Clear equal breath sounds and no trauma to the chest so I am not concerned for pneumothorax. Patient has been ambulatory since his fall so I am not concerned for any hip fractures. 3:30 PM Patient's right shoulder x-ray showing right shoulder dislocation with scapular tuberosity fracture. I spoke with Dr. Novak from orthopedics who advised bedside reduction. Basic metabolic panel showing mild hyperglycemia but no anio n gap and normal bicarbonate??not consistent with DKA. No OLEKSANDR normal renal function. CBC shows no anemia no thrombocytopenia no leukocytosis. Will treat with 75 mcg additionally of fentanyl and attempt reduction with park technique. 4:30 PM Initially the park technique was tried which failed. Subsequently that Davos technique was tried which failed. Finally procedural sedation and the Santa technique was attempted. Procedural sedation began at 4:05 PM and was completed 4:25 PM. Procedural sedation was accomplished with 2 providers, Dr. Herr performed reduction attempt while I completed procedural sedation. Unfortunately procedure failed. Dr. Novak from orthopedics is coming in. 5:[address] Novak completed bedside reduction under second procedural sedation and analgesia. Patient tolerated procedure well. Will complete CT scan per orthopedics. Patient is in a splint. Postreduction x-ray shows shoulder in good position. Will keep patient nonweightbearing on his right upper extremity in a sling until he sees orthopedics later this week. I have asked health business unit director Lynda send patient seen later this week by the orthopedic team. Of also passed along the number for the orthopedic clinic for the patient to call. [address] scan right shoulder showing anatomical alignment with humeral head defect. No definitive glenoid deformity. No acute elbow abnormalities. Postreduction patient has reassuring neurovascular status in his right hand. Right hand warm well-perfused. Cap refill intact. 2+ right radial pulse. Patient and I discussed outpatient orthopedic follow-up next week. We discussed keeping his arm in a sling and not bearing any weight on his right upper extremity. We discussed as needed acetaminophen dosing. We discussed return to the ED for worsening pain or any numbness or tingling in his hand. Chronic conditions affecting the care of the patient: Rheumatoid arthritis History obtained from an outside historian: N/A External record review: No [facility] EMR records Medications: Fentanyl, hydromorphone, propofol, acetaminophen, ketorolac Social determinants of health affecting disposition: N/A Management discussed with: Orthopedics Treatment/interventions considered: N/A Response to therapies provided: Improved pain following reduction HPI This is a [id number]-rawbjlvk 73-year-old male with a history of rheumatoid arthritis on methotrexate arrived to the emergency department following a fall onto his right shoulder. Patient was reportedly outside trying to pick remover a bucket filled with wire and ice. He slipped and reports forcefully abducting his right arm. This occurred approximately 30 minutes ago. He did not hit his head. He has been ambulatory since his injury and is having no chest pain or shortness of breath. He did not lose consciousness. He is not anticoagulated. He reports that greater than 25 years ago he had a right rotator cuff repair. He was in his usual state of health earlier today with no fevers chills chest pain shortness of breath. Exam General: Uncomfortable-appearing in no acute distress speaking in complete sentences. Head: Normocephalic, atraumatic. Eye: Extraocular eye movements intact. No conjunctival injection. No scleral icterus. Ear, nose, mouth, throat: Grossly normal inspection. Normal voice, handling secretions normally. Neck: Trachea midline. Cardiovascular: Well-perfused distal extremities. Regular rate and rhythm Respiratory: Nonlabored respiration. Clear lungs bilaterally. Gastrointestinal: Nondistended abdomen. Musculoskeletal: Right shoulder held in abduction appears slightly squared off the shoulder. Right hand warm well-perfused with approximately 3-second capillary refill. 2+ right radial pulse. Sensation and motor function intact in the right hand across the radial, median, and ulnar nerve distributions. Sensation intact overlying the right deltoid. Skin: Normal for age and race, grossly normal temperature and turgor. No acute rash. Neurologic: Alert and appropriate, no apparent acute deficits. GCS 15. Psychiatric: Mood and manner are appropriate. Grooming and personal hygiene are appropriate. Related Data Home Medications Medication Instructions Recorded Confirmed acetaminophen 650 mg 650 mg PO PRN 10/04/12 07/08/23 tablet,extended release (Tylenol Arthritis) latanoprost 0.005 % eye drops 1 drp ophthalmic (eye) DAILY 10/04/12 07/08/23 cyclobenzaprine 10 mg tablet 10 mg PO HS PRN muscle spasm #7 01/21/22 07/08/23 tabs lidocaine 5 % topical patch 1 patch topical DAILY #15 ea 01/21/22 07/08/23 (Lidoderm) celecoxib 100 mg capsule 1,000 mg PO DAILY 03/05/22 07/08/23 duloxetine 60 mg capsule,delayed 60 mg PO DAILY 03/05/22 07/08/23 release sprinkle methotrexate 2.5 mg/mL oral 2.5 mg PO 7XD 03/05/22 07/08/23 solution prazosin 5 mg capsule 20 mg PO HS 03/05/22 07/08/23 tamsulosin 0.4 mg capsule 0.4 mg PO DAILY 03/05/22 07/08/23 Previous Rx's Medication Instructions Recorded cyclobenzaprine 10 mg tablet 10 mg PO HS PRN muscle spasm #7 01/21/22 tabs lidocaine 5 % topical patch 1 patch topical DAILY #15 ea 01/21/22 (Lidoderm) Allergies Allergy/AdvReac Type Severity Reaction Status Date / Time gluten AdvReac Intermediate Other (See Verified 07/08/23 14:45 Comment) morphine AdvReac Mild HALLUNCINAT Verified 07/08/23 14:45 IONS General Stated Complaint: Orthopedic ELSIE: 3 Course Vital Signs Vital signs: Vital Signs Temperature 36.7 C 07/08/23 14:40 Pulse 67 07/08/23 14:40 Respiratory Rate 18 07/08/23 14:40 Blood Pressure 173/98 H 07/08/23 14:40 Pulse Oximetry 99 07/08/23 14:40 Temperature 36.7 C 07/08/23 14:40 Pulse 67 07/08/23 14:40 Respiratory Rate 18 07/08/23 14:40 Respiratory Effort Normal 07/08/23 14:43 Blood Pressure 173/98 H 07/08/23 14:40 Pulse Oximetry 99 07/08/23 14:40 Procedures Orthopedic Joint Reduction Joint #1: Time Out Performed: Yes Side: right Joint Reduction Location: shoulder Analgesia: procedural sedation Shoulder Technique Used (if applicable): traction/counter-traction, scapula manipulation and other (Initially the park technique was tried which failed. Subsequently that Realos technique was tried which failed. Finally procedural sedation and the Santa technique was attempted.) Technique used: traction/counter-traction Post-reduction neuro exam: no change Post-reduction vascular: no change Post Reduction X-Ray Obtained: No (No obvious improvement) Procedural Sedation Indication: fracture/dislocation reduction Presedation Evaluation: Please see assigned procedural sedation checklist ASA Class: II Time of Last PO Intake: 13:00 Preparation: nuclear monitoring technician applied, pulse oximeter, capnometry used and supplemental O2 applied Fentanyl: IV Fentanyl dose (mcg): 75 IV Propofol dose (mg): 80 Patient Tolerated Procedure: well Complications: hypoventilation Interventions: airway repositioned and assist by BVM Additional Comments: Patient tolerated procedure well. Dr. Herr assisted with procedural sedation while I completed reduction attempt. Patient required a second procedural sedation with analgesia. I completed the PSA. It began at 440 and was finished at 455. Patient required bagging. Second procedural sedation was accomplished using 80 mg of propofol. Patient required bagging but otherwise tolerated the procedure well. Please see separate procedural checklist. 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 Social History Smoking/Tobacco Use Status: Former Tobacco Use Smoking risk assessment performed?: Yes Alcohol Intake: never Drug use: Never Substance use type: does not use Housing: house Current gender identity: male Do you feel safe at home: Yes Do you feel safe in your relationship?: Yes Discharge Plan Disposition Patient Disposition: Home Discharge Details Clinical Impression: Inferior dislocation of right shoulder Primary Care Provider: Unknown,Unknown ED Provider: Leonel Cho [place] Meds and New Rx's Prescriptions: Continued latanoprost 2.5 ML drops 1 drp Ophthalmic DAILY acetaminophen [Tylenol Arthritis] 650 MG tablet extended release 650 mg PO PRN lidocaine [Lidoderm] 5 % adhesive patch,medicated 1 patch topical DAILY Qty: 15 0RF Rx Instructions: leave on most painful area for up to 12 hrs cyclobenzaprine 10 mg tablet 10 mg PO HS PRN (Reason: muscle spasm) Qty: 7 0RF prazosin 5 mg Capsule 20 mg PO HS tamsulosin 0.4 mg Capsule 0.4 mg PO DAILY celecoxib 100 mg Capsule 1,000 mg PO DAILY methotrexate 2.5 mg/mL Solution 2.5 mg PO 7XD duloxetine 60 mg Capsule, Delayed Rel Sprinkle 60 mg PO DAILY Discharge Instructions Additional Instructions: You were seen in the emergency department for your shoulder pain. You are found to have a a dislocated shoulder which was relocated in the emergency department. Please wear the sling you have been provided. Please follow-up with orthopedic team by calling the clinic in the morning for an appointment later this week. Please do not bear weight on your right upper extremity until you are seen by the orthopedic team. For your pain please take medications as follows: 1. Take acetaminophen (Tylenol), 1,000 mg (two 500 mg tabs) every 6 hours Referrals: [facility] [Provider Group]
[2023-07-08] MEDS: fentaNYL 100 MCG/2 ML VIAL 75 MCG IVP ×2 (15:01→15:53)
[2023-07-08] MEDS: Normal Saline 500 ML IV (15:06)
[2023-07-08 15:08] LABS: Abs Immature Grans 0.03 10^3/uL (0.0-0.06); Absolute Basophil Count 0.05 10^3/uL (0.0-0.2); Absolute Eosinophil Count 0.25 10^3/uL (0.0-0.7); Absolute Lymphocyte Count 1.48 10^3/uL (1.2-3.4); Absolute Monocyte Count 0.49 10^3/uL (0.1-0.8); Basophils % 0.8; Eosinophils % 3.8; HCT 40.2 % (40.0-50.0); HGB 13.7 g/dL (13.5-17.5); Immature Grans % 0.5; Lymphocytes % 22.4; MCH 31.1 pg (27.0-33.0); MCHC 34.1 % (32.0-36.0); MCV 91 fL (80-95); MPV 9.7 fL (8.0-11.0); Monocytes % 7.4; Neutrophils % 65.1; Platelet Count 200 10^3/uL (130-400); RBC 4.41 10^6/uL (4.36-5.78); RDW 13.6 % (11.8-14.1); RDW-SD 45.5 fL
[2023-07-08 15:18] LABS: Anion Gap 10.2 mmol/L (3-11); BUN 16 mg/dL (7-18); CO2 27.8 mmol/L (21.0-32.0); CREATININE 0.9 mg/dL (0.70-1.30); Calcium 9.2 mg/dL (8.5-10.1); Chloride 103 mmol/L (98-107); Estimated GFR 90.18 (mL/min/1.73m2); Glucose 132 mg/dL (74-106); Potassium 4.4 mmol/L (3.5-5.1); Sodium 141 mmol/L (136-145)
--- NOTE | 2023-07-08 15:45 | DI.RAD_ITS ---
Exam(s) XR SHOULDER RT 1V EXAM: XR SHOULDER RT 1V CLINICAL HISTORY: ? post reduc. TECHNIQUE: 2D digital imaging was performed. One view. Labeled postreduction 1. COMPARISON: CR,XR XR SHOULDER RT COMPLETE 2+V from 07/08/2023 FINDINGS: BONES: There has been no change in the inferior dislocation of the humeral head with impaction on the inferior rim of the glenoid. No new abnormalities are seen. DATA REPOSITORY: RADIATION DOSE DELIVERED:
[2023-07-08] MEDS: Ketorolac 15 MG/ML VIAL IVP (15:53)
--- NOTE | 2023-07-08 15:53 | DI.VRAD_ITS ---
PROCEDURE INFORMATION: Exam: XR Right Shoulder Exam date and time: 07/08/2023 3:15 PM Age: 73 years old Clinical indication: Patient HX: Right shoulder pain TECHNIQUE: Imaging protocol: Radiologic exam of the right shoulder. Views: 2 or more views. COMPARISON: CR XR CHEST 2V PA LATERAL 06/08/2023 11:06 AM FINDINGS: Bones/joints: There is a right shoulder dislocation with inferior displacement of the humeral head. There is a superior humeral defect secondary to impaction with the glenoid rim. Next lines Soft tissues: Normal. IMPRESSION: Inferior right shoulder dislocation. Concern for humeral head defect secondary to impaction. Dictated and Authenticated by: Judith Yeager MD. Ordering:JESSICA Castnaeda MD
--- NOTE | 2023-07-08 16:07 | DI.VRAD_ITS ---
PROCEDURE INFORMATION: Exam: XR Right Shoulder Exam date and time: 07/08/2023 3:58 PM Age: 73 years old Clinical indication: Other: ? Post reduction TECHNIQUE: Imaging protocol: Radiologic exam of the right shoulder. Views: 1 view. COMPARISON: CR XR SHOULDER RT COMPLETE 2+V 07/08/2023 3:15 PM FINDINGS: Bones/joints: There is a persistent inferior humeral head shoulder dislocation with superior humeral head defect. Soft tissues: Normal. IMPRESSION: No significant positional change inferior humeral head dislocation. Dictated and Authenticated by: Judith Yeager MD. Ordering:JESSICA Castaneda MD
[2023-07-08] MEDS: HYDROmorphone 2 MG/ML SYR (16:31)
[2023-07-08] MEDS: Propofol 200 MG/20 ML VIAL 80 MG IVP ×2 (16:32→16:57)
--- NOTE | 2023-07-08 16:45 | DI.RAD_ITS ---
Exam(s) XR SHOULDER RT 1V EXAM: XR SHOULDER RT 1V CLINICAL HISTORY: Postreduction. TECHNIQUE: 2D digital imaging was performed. One view. COMPARISON: No exams were available for comparison FINDINGS: The previously noted dislocation has been been reduced. The alignment is anatomic on this single vie w. DATA REPOSITORY: RADIATION DOSE DELIVERED:
--- NOTE | 2023-07-08 17:00 | DI.CT_ITS ---
Exam(s) CT UPPER EXTREMITY RT WO EXAM: CT UPPER EXTREMITY RT WO CLINICAL HISTORY: Right shoulder dislocation. TECHNIQUE: Imaging Protocol: Axial computed tomography images with coronal and sagittal reformatted images were created and reviewed. COMPARISON: CR,XR XR SHOULDER RT COMPLETE 2+V from 07/08/2023 FINDINGS: Bones: Which shaped impaction fracture at the superior humeral head. No glenoid fracture. Multiple chronic appearing bony densities noted at the acromion. Chronic appearing deformity of the acromion. Degenerative changes at the glenoid. Degenerative subchondral cyst in the humeral head. No lytic or sclerotic lesions are identified. Joints: The glenohumeral humeral joint is normally aligned. Soft Tissues: Joint effusion IMPRESSION: Impaction fracture at the superior humeral head. No evidence of glenoid fracture. Glenohumeral alig nment is normal. RADIATION DOSE DELIVERED: 734.12mGy.cm Total DLP 734.12mGy.cm Total DLP DATA REPOSITORY: All CT scans at this facility are submitted to the National Radiology Data Registry (NRDR) Dose Index Registry (DIR) with the [employer] ([employer]). RADIATION OPTIMIZATION: All CT scans at this facility use at least one of these dose optimization te chniques: automated exposure control; mA and/or kV adjustment per patient size (includes targeted exa ms where dose is matched to clinical indication); or iterative reconstruction.
--- NOTE | 2023-07-08 17:10 | DI.VRAD_ITS ---
PROCEDURE INFORMATION: Exam: XR Right Shoulder Exam date and time: 07/08/2023 4:59 PM Age: 73 years old Clinical indication: Other: Post reduction #2 TECHNIQUE: Imaging protocol: Radiologic exam of the right shoulder. Views: 2 or more views. COMPARISON: CR XR SHOULDER RT COMPLETE 2+V 07/08/2023 3:58 PM FINDINGS: Bones/joints: Alignment is essentially anatomic post reduction. Single view provided. Superior humeral head defect noted. Soft tissues: Normal. IMPRESSION: Anatomic alignment post reduction. Dictated and Authenticated by: Judith Yeager MD. Ordering:JESSICA Castaneda MD
[2023-07-08] MEDS: Acetaminophen 500 MG TAB 1000 MG PO (17:23)
--- NOTE | 2023-07-08 17:52 | DI.VRAD_ITS ---
PROCEDURE INFORMATION: Exam: CT Right Upper Extremity Without Contrast, Shoulder Exam date and time: 07/08/2023 5:21 PM Age: 73 years old Clinical indication: Injury or trauma; Fall; Patient HX: Right shoulder dislocation TECHNIQUE: Imaging protocol: Computed tomography of the right upper extremity without contrast. Exam focused on the shoulder. COMPARISON: CR XR SHOULDER RT COMPLETE 2+V 07/08/2023 4:59 PM FINDINGS: Bones/joints: Bony alignment is anatomic. There are some dystrophic calcifications seen at the apex of the shoulder joint, nonacute. There appears to be a complex joint effusion, presumed hemarthrosis. Superior humeral head defect identified consistent with deformity from recent dislocation. There is a tiny bone density focus at the base of the glenoid rim series 3, images 168-159. It appears well corticated and likely nonacute. Soft tissues: Normal. IMPRESSION: Anatomic alignment. Humeral head defect. Hemarthrosis. No definite glenoid deformity. Dictated and Authenticated by: Judith Yeager MD. Ordering:JESSICA Castaneda MD
--- NOTE | 2023-07-08 17:58 | DI.VRAD_ITS ---
PROCEDURE INFORMATION: Exam: XR Right Elbow Exam date and time: 07/08/2023 5:34 PM Age: 73 years old Clinical indication: Right; Patient HX: Fall, elbow pain TECHNIQUE: Imaging protocol: Radiologic exam of the right elbow. Views: 3 or more views. COMPARISON: CT UPPER EXTREMITY RT WO 07/08/2023 5:21 PM FINDINGS: Bones/joints: Normal. Soft tissues: Normal. IMPRESSION: No evidence for acute posttraumatic abnormality. Dictated and Authenticated by: Judith Yeager MD. Ordering:JESSICA Castaneda MD
--- NOTE | 2023-08-08 16:18 | OCONE_ITS ---
Date of service: 07/08/23 Time of Service: 17:00 History of Present Illness History of Present Illness Chief Complaint: Right shoulder dislocation Narrative: Fabiano is a active 73-year-old who has a history of a rotator cuff tear status postsurgery and read tear. 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 As he fell the bucket forcefully abducted his right arm. He felt immediate pain and deformity. He does report previous history of instability about the right shoulder. This was described initially as an anterior inferior dislocation. Initial reduction attempts were performed but were unsuccessful. I was called in consultation to assist with the reduction. Fabiano had had some sedation when I saw him but was able to respond appropriately. He denied any numbness or tingling of the right hand. He did report some pain about the right shoulder. He currently denied any chest pain or shortness of breath. Consults Consult date: 07/08/23 Requesting physician: Leonel Cho Consult Reason Right shoulder dislocation Assessment and Plan Assessment and plan (1) Closed dislocation of right glenohumeral joint: Status: Acute (2) Hill Sachs deformity, right: Status: Acute Assessment and plan: Fabiano is a 73-year-old who suffered a dislocation event of the right shoulder. There is a large engaging Hill-Sachs type lesion which is slightly more midline and superior than the typical Hill-Sachs deformity. This is engaging which is what made the reduction somewhat challenging. He has multiple fragment in the subacromial space and a previous history of rotator cuff repair with failure. Unfortunately, the surgery is likely the only option to return to more normal function and stability to the right shoulder. At this point he will stay in the sling. I will have him follow-up with my partner, Dr. Medel to discuss the shoulder and potential surgical intervention. Review of Systems All systems reviewed & are unremarkable except as noted in HPI and below PFSH All Active Problems (Updated 08/08/23 @ 16:27 by Logan Novak MD) Hill Sachs deformity, right (Acute) Closed dislocation of right glenohumeral joint (Acute) Injury of right brachial plexus (Acute) Medical History PTSD (post-traumatic stress disorder) Arthritis Surgical History 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 Social History Smoking/Tobacco Use Status: Former Tobacco Use Smoking risk assessment performed?: Yes Alcohol Intake: never Drug use: Never Substance use type: does not use Housing: house Current gender identity: male Do you feel safe at home: Yes Do you feel safe in your relationship?: Yes Exam Narrative Exam Narrative: Sitting up in the hospital stretcher. Uncomfortable. Alert and orient x 3. Head is normocephalic and atraumatic. There is a positive sulcus sign about the right shoulder with a defect seen underneath the acromion and a prominence to the medial chest wall. He reported some dysesthesias in the axillary nerve distribution although he reported some sensation. Distally median, radial, ulnar nerve was intact. After sedation was administered by the emergency room, a reduction was performed. This was a Spaso-Santa type technique where graft the forearm and the elbow and pulled some gentle traction while I slowly externally rotated the arm. With my other hand I directly manipulate the humeral head pushing medial to lateral as well as on the humerus to clear the glenoid. Progressive external rotation was continued with some slight traction as the humerus was felt to fall back to the shoulder. The arm was then internally rotated and appeared reduced with the loss of the sulcus and eighth the acromion. Results Last Vital Signs Temp 36.7 C 07/08/23 14:40 Pulse 67 07/08/23 14:40 Resp 18 07/08/23 14:40 BP 173/98 H 07/08/23 14:40 Pulse Ox 99 07/08/23 14:40 Labs 07/08/23 14:50 07/08/23 14:50 Imaging Imaging Studies: X-ray of the right shoulder shows an anterior inferior dislocation. There appears to be a large Hill-Sachs deformity. There is also some bony debris seen underneath the acromion which is likely from the greater tuberosity. Postreduction x-rays were obtained initially with failure of reduction but after my reduction attempt appear to be intact. CT scan was also obtained which did show bony fragments in the subacromial space which may appear chronic in nature. There is a large defect in the superior head and the articular margin of the humeral head with impaction, in essence a superior Hill-Sachs type deformity. There are also some cystic changes seen in the greater tuberosity.
== END 2023-07-08 18:17 | disposition home or self-care (01) ==
PROVIDERS: Emergency Provider Emergency Medicine
DX: S42.291A Other displaced fracture of upper end of right humerus, initial encounter for closed fracture (principal); S43.314A Dislocation of right scapula, initial encounter; M06.9 Rheumatoid arthritis, unspecified; Z79.631 Long term (current) use of antimetabolite agent; W01.0XXA Fall on same level from slipping, tripping and stumbling without subsequent striking against object, initial encounter; Y93.89 Activity, other specified; Y92.017 Garden or yard in single-family (private) house as the place of occurrence of the external cause; S43.084A Other dislocation of right shoulder joint, initial encounter; M21.821 Other specified acquired deformities of right upper arm
CPT/HCPCS: 23650; 80048; 96361; 96374; 96375; 96376; 99152; 99153; 99156; 99157; 99285; 73020; 73030; 73080; 73200; 85025; 99284; J1170; J1885; J2704; J3010

== ENCOUNTER 2023-07-17 15:46 | Outpatient (CLI) | payer OTHER, SELFPAY ==
--- NOTE | 2023-07-17 11:30 | DI.RAD_ITS ---
Exam(s) XR SHOULDER RT COMPLETE 2+V EXAM: XR SHOULDER RT COMPLETE 2+V CLINICAL HISTORY: F/U SHOULDER DISLOCATION. TECHNIQUE: 2D digital imaging was performed. COMPARISON: CT CT UPPER EXTREMITY RT WO from 07/08/2023 CR,XR XR SHOULDER RT 1V from 07/08/2023 FINDINGS: 3 views Are multiple corticated densities at the AC joint level which have the appearance more of degenerativ e change than actual fracture at this level. No evidence of fracture or dislocation of glenohumeral joint. Calcification is seen in the soft tiss ues just above the greater tuberosity consistent with element of calcific tendinitis of the rate sea r cuff. No acute ear humeral head/neck fractures identified. Osseous glenoid appears intact. IMPRESSION: Calcific rotator cuff tendinitis. Other findings as above. No acute fracture evident. DATA REPOSITORY: RADIATION DOSE DELIVERED:
== END 2023-07-17 15:47 | disposition home or self-care (01) ==
LOC: DIORS 15:46
PROVIDERS: Visit Provider Student in an Organized Health Care Education/Training Program
DX: S43.03 Inferior subluxation and dislocation of humerus (principal); X58.XXXD Exposure to other specified factors, subsequent encounter
CPT/HCPCS: 73030

== ENCOUNTER 2023-10-05 05:55 | Day surgery (SDC) | payer OTHER, SELFPAY ==
[2023-10-05] VITALS (12 sets, daily range): BP systolic 95–131; BP diastolic 46–83; PULSE 45–60; RESP 12–24; TEMP 36.3–37.1; O2SAT 90–100; BMI 26.2
[2023-10-05] MEDS: Lactated Ringers 1,000 ML 30 ML IV (07:00)
--- NOTE | 2023-10-05 07:03 | W.ANESPRE ---
General Info Date of Service Date Performed: 10/05/23 Height: 5 ft 6 in Weight: 73.8 kg Body Mass Index (BMI): 26.2 Surgical Procedure: Operation Date: 10/05/23 07:40 Proposed Procedure Side Surgeon p Shoulder Reverse Total Arthroplasty, Biceps Tenodesis Right Tj Medel MD Meds Allergies and Home Medications Allergies Allergy/AdvReac Type Severity Reaction Status Date / Time gluten AdvReac Intermediate Other (See Verified 10/05/23 06:20 Comment) morphine AdvReac Mild HALLUNCINAT Verified 10/05/23 06:20 IONS Home Medication Medication Instructions Recorded acetaminophen 650 mg 650 mg PO PRN 10/04/12 tablet,extended release (Tylenol Arthritis) latanoprost 0.005 % eye drops 1 drp ophthalmic (eye) DAILY 10/04/12 cyclobenzaprine 10 mg tablet 10 mg PO HS PRN muscle spasm #7 01/21/22 tabs lidocaine 5 % topical patch 1 patch topical DAILY #15 ea 01/21/22 (Lidoderm) celecoxib 100 mg capsule 1,000 mg PO DAILY 03/05/22 duloxetine 60 mg capsule,delayed 60 mg PO DAILY 03/05/22 release sprinkle methotrexate 2.5 mg/mL oral 2.5 mg PO 7XD 03/05/22 solution prazosin 5 mg capsule 20 mg PO HS 03/05/22 tamsulosin 0.4 mg capsule 0.4 mg PO DAILY 03/05/22 cholecalciferol (vitamin D3) 25 25 mcg PO DAILY 07/17/23 mcg (1,000 unit) capsule donepezil 10 mg tablet 10 mg PO DAILY 07/17/23 folic acid 1 mg tablet 1 mg PO DAILY 07/17/23 hydroxychloroquine 200 mg tablet 200 mg PO BID 07/17/23 omega 8-ouz-jod-fish oil 60 mg-90 1 cap PO DAILY 07/17/23 mg-500 mg capsule (Fish Oil) rosuvastatin 5 mg tablet 5 mg PO DAILY 07/17/23 turmeric 400 mg capsule 400 mg PO DAILY 07/17/23 ropinirole 1 mg tablet 1 mg PO QHS 10/03/23 timolol 0.5 % eye drops (Betimol) 1 drp ophthalmic (eye) DAILY 10/05/23 tramadol 50 mg tablet 50 mg PO Q8H PRN severe pain #12 10/05/23 tabs Current Visit Medications: Current Medications Generic Name Dose Route Start Last Admin Trade Name Mell PRN Reason Stop Dose Admin Ringer's Solution 1,000 mls @ 30 mls/hr 10/05/23 06:00 10/05/23 07:00 IV 11/03/23 23:59 30 mls/hr INFUSION CARLOS Administration Cefazolin Sodium/Dextrose 2 gm in 50 mls @ 100 mls/hr 10/05/23 06:00 Ancef Duplex IVPB 11/03/23 23:59 PREOP CARLOS Tranexamic Acid/Sodium Chloride 1,000 mg in 100 mls @ 600 mls/hr 10/05/23 06:00 IVPB 11/03/23 23:59 PREOP CARLOS IV Miscellaneous Supplies 1 each 10/05/23 06:00 Iv Access IV 11/03/23 23:59 DIRECTED CARLOS Sodium Chloride 0 ml 10/05/23 06:00 Normal Saline Flush 10 Ml Syr IV 11/03/23 23:59 PRN PRN Sodium Chloride 0 ml 10/05/23 06:00 Normal Saline 10 Ml Vial IJ 11/03/23 23:59 DIRECTED PRN Sterile Water 0 ml 10/05/23 06:00 Water,Injection,Sterile 10 Ml Vial IJ 11/03/23 23:59 DIRECTED PRN PFSH Active Problems Active Problems: Problem Status Onset Code Hill Sachs deformity, right M21.821 Closed dislocation of right glenohumeral joint S43.084A Injury of right brachial plexus S14.3XXA Medical History Medical History (Updated 10/03/23 @ 12:19 by Sy Ortiz) PTSD (post-traumatic stress disorder) Pt. 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 Tobacco Smoking/Tobacco Use Status: Former Tobacco Use Alcohol Alcohol Intake: former Substance Use Substance use: Never Substance use type: does not use Vital Signs and Lab Results Vital Signs Most Recent Vital Signs in EMR: Most Recent Vital Signs Temp Pulse Resp BP Pulse Ox 36.3 C L 55 L 16 95/54 L 98 10/05/23 06:25 10/05/23 06:25 10/05/23 06:25 10/05/23 06:25 10/05/23 06:25 Lab Results Blood Type / Crossmatch: No Data to Display Complete Blood Count: No Data to Display Complete Metabolic Panel: No Data to Display Liver Function Panel: No Data to Display Coagulation Panel: No Data to Display Cardiac Panel: No Data to Display Arterial Blood Gas: No Data to Display Venous Blood Gas: No Data to Display Pancreas Panel: No Data to Display Thyroid Panel: No Data to Display Infectious Disease: No Data to Display Blood Cultures: No Data to Display Toxicology Panel: No Data to Display Anesthesia Assessment and Plan Anesthesia History Personal History: No History of Anesthesia Complications Family History: No Family History of Anesthesia Complications Exercise Tolerance Exercise Tolerance: Metabolic Equivalents>4 Pertinent Negatives Pertinent Negatives: No Symptoms of GERD, No Major Cardiovascular Symptoms or Complaints, No Major Pulmonary Symptoms or Complaints and No History of CVA/TIA Cardiac & Pulmonary Exam Cardiac Exam: Normal S1/S2 Heart Sounds Pulmonary Exam: Clear Bilateral Breath Sounds Implantable Cardiac Device Does patient have a Pacemaker or an ICD?: No Airway Exam Known Difficult Airway: No Mallampati Class: 1 Mouth Opening: Normal (> 3cm) Thyromental Distance: Greater than 3 cm Neck Range of Motion: Full ROM Neck Circumference: Normal Teeth Condition: Normal Dentition ASA Classification ASA Score: ASA 2 Emergency Case?: No NPO Status NPO Status: NPO Clears >2 hours, Solids >8 hours Anesthesia Plan Resuscitation Status: Full Code Anesthesia Technique: General Anesthesia Airway Planned: Endotracheal Tube Pain Management: Surgeon and patient request nerve block Monitors Used: Standard Monitors
--- NOTE | 2023-10-05 07:12 | W.PM.DSUDISC ---
Date of service: 10/05/23 Time of Service: 16:00 Discharge Plan Disposition Patient Disposition: Home Condition: Stable Discharge Details Attending Provider: Tj Medel Home Meds and New Rx's Prescriptions: New tramadol 50 mg tablet 50 mg PO Q8H PRN (Reason: severe pain) Qty: 12 0RF Continued folic acid 1 mg tablet 1 mg PO DAILY donepezil 10 mg tablet 10 mg PO DAILY hydroxychloroquine 200 mg tablet 200 mg PO BID rosuvastatin 5 mg tablet 5 mg PO DAILY turmeric 400 mg capsule 400 mg PO DAILY omega 3-kda-zqa-fish oil [Fish Oil] 60-90-500 mg capsule 1 cap PO DAILY cholecalciferol (vitamin D3) 25 mcg (1,000 unit) capsule 25 mcg PO DAILY latanoprost 2.5 ML drops 1 drp Ophthalmic DAILY acetaminophen [Tylenol Arthritis] 650 MG tablet extended release 650 mg PO PRN lidocaine [Lidoderm] 5 % adhesive patch,medicated 1 patch topical DAILY Qty: 15 0RF Rx Instructions: leave on most painful area for up to 12 hrs cyclobenzaprine 10 mg tablet 10 mg PO HS PRN (Reason: muscle spasm) Qty: 7 0RF prazosin 5 mg Capsule 20 mg PO HS tamsulosin 0.4 mg Capsule 0.4 mg PO DAILY celecoxib 100 mg Capsule 1,000 mg PO DAILY methotrexate 2.5 mg/mL Solution 2.5 mg PO 7XD duloxetine 60 mg Capsule, Delayed Rel Sprinkle 60 mg PO DAILY ropinirole 1 mg tablet 1 mg PO QHS Betimol 0.5 % drops 1 drp ophthalmic (eye) DAILY Discharge Instructions Additional Instructions: Surgery: Right reverse total shoulder arthroplasty (constrained liner) with biceps tenodesis Activity: Do not lift anything heavier than a coffee. You should keep your arm at your side in a relatively neutral position at all times except for gentle range of motion exercises, physical therapy, and essential activities. You should use the sling whenever you are out of the house. You may have to adjust the abduction pillow or remove it for comfort. At home it is best to remove the sling and rest the arm on a pillow at your side or support the operative side with your other hand. A physical therapy prescription will be sent electronically to start in about 3 weeks. STANDARD protocol. Prescriptions: Resume home Celebrex as needed for moderate pain Tramadol 50 mg take 1 every 8 hours as needed for severe pain You may use [id number] Tylenol (acetaminophen) as needed for mild pain. These pain medications may be taken all at once or in different combinations as needed. Also, recommend Colace (docusate) as a stool softener as surgery and pain medicine cause constipation. You may try [id number] diphenhydramine (Benadryl) 25-50 mg nightly as a sleep aid Dressings: Leave dressing in place until follow-up. Keep clean and dry at all times. No showers please. Follow-up: 10-[address] Medel October 16, 2023 @ 9:15pm. You may take off the leg compression stockings this evening at home. You may also leave them on a few days longer if you have a history of leg swelling or edema. Please call the office during business hours with any questions or concerns. Let us know right away if you develop any redness, drainage, fevers, chest pain, or trouble breathing. Do not drink alcohol or drive for at least 24 hours after anesthesia. Stand Alone Forms: Anesthesia Discharge Inst., Shaynas.Nerve Block Instructions, Ezio Booth (DSU) Discharge Orders Discharge Orders: Discharge Order (Routine); Ordered 10/05/23 Ordered By: Elis Valle Discharge Data Discharge Date/Time-TO BE ENTERED AT DEPARTURE: 10/05/23 15:25 DS: Diagnosis Discharge Diagnosis (1) Hill Sachs deformity, right: (2) Closed dislocation of right glenohumeral joint: (3) Cubital tunnel syndrome on right: Status: Acute (4) Rotator cuff tear arthropathy of right shoulder: Status: Acute
--- NOTE | 2023-10-05 07:23 | W.PM.OP ---
Date of service: 10/05/23 Time of Service: 07:30 Operative Note Operative Note DATE OF PROCEDURE: 10/05/23 PRE-OP DIAGNOSIS: Right: 1. Rotator cuff arthropathy 2. Long head of the biceps tendinopathy 3. Shoulder instability 4. Hill-Sachs defect POST-OP DIAGNOSIS: same PROCEDURE: Right: 1. Reverse total shoulder arthroplasty, CPT # [address] 2. Open biceps tenodesis, CPT # 55048 The assistant technician was medically required as this procedure involves retraction, protection of neurovascular structures, and manipulation of multiple instruments and implants at the same time, which cannot be done without a skilled assistant technician. SURGEON: Tj Medel [employer] COORDINATOR: Elis Valle ANESTHESIA TYPE: Local By Surgeon, General LMA/ETT and Primary Nerve Block Refer to Anesthesia Record ESTIMATED BLOOD LOSS: 50 COMPLICATIONS: None Patient was transported to: PACU Patient's condition: stable Implants: [employer] modular glenoid system baseplate 24 mm, 10 degree full augment standard [employer] modular glenoid system central post 25 mm [employer] modular glenoid system peripheral locking screws 36 mm inferior, 36 mm superior, 20 mm posterior, 20 mm anterior [employer] modular glenoid system glenosphere 42 +4 mm lateralized [employer] humeral stem 135 degrees size 10 [employer] suture cup size 42 posterior offset [employer] humeral insert size 42 +3 mm constrained Indications: Please see complete medical record for details. Findings: From prior surgery some significant anterior and lateral scarring, largely intact subscapularis although the shoulder had significant anterior superior instability. Mostly deficient supraspinatus and infraspinatus. Large engaging Hill-Sachs superiorly located lesion. Intact biceps tendon with partial tearing at the bicipital groove entrance to the joint. Moderate arthritis. Procedure Description: In the operating room, general anesthesia was induced. The patient was positioned beachchair on the operating room table. All bony prominences were well-padded. Preoperative antibiotics were administered. The shoulder was prepped and draped in the usual sterile fashion for shoulder arthroplasty. The correct patient, procedure, and side of the procedure were all verified prior to incision. The deltopectoral approach was preinjected with 0.25% bupivacaine containing epinephrine and taken to the anterior shoulder placed slightly more medial to allow proper tissue bridge with the old anterior lateral incision. Care was taken to bluntly dissect the interval between the deltoid and pectoralis major muscles, but the fat stripe and cephalic vein were unable to be identified likely due to scarring in this area from prior surgeries. Interval was opened from about the coracoid to the appropriate distance distally at the pectoralis major tendon. Subdeltoid space and conjoined tendon were freed of adhesions and bursitis removed. The long head of the biceps tendon was identified just lateral to the lesser tuberosity. The uppermost margin of the pectoralis major tendon was released from the proximal humerus. The long head of the biceps tendon was tenodesed in situ using SutureTape in a [id number] fashion securing it superior margin the pectoralis major tendon. The biceps tendon was amputated and followed proximally to confirm the rotator interval. The supraspinatus and infraspinatus were identified and debrided of minimal remnant. Appropriate coagulation was achieved especially interiorly. The anatomic neck was cut using an oscillating saw with the humeral head bone brought back table in case there was a need for future bone grafting. The cut went through the Hill-Sachs bony defect, there was no issues with fracture propagation. The proximal humerus was delivered from the wound with adduction and external rotation. The proximal humeral protection plate was used to provisionally confirm suture cup and glenosphere size. Reamers were started appropriately posterior to the bicipital groove taking care to maintain in line approach with the humeral canal. Sequential reaming was done from size 5 up to size 8 and sounding done up to size 10. Next, the broaches were sequentially used to open the proximal humerus starting with a size 5 and going up to size 10 and sunk to the appropriate depth while maintaining approximately 20-25 degrees retroversion. There was good metaphyseal fit and rotational control of the proximal humerus with this size. The posterior offset guide was used to ream for the suture cup. Attention was then turned to the glenoid and retractors were placed and a circumferential release performed using the long head of the biceps remnant to remove soft tissue about the glenoid rim. Care was taken inferiorly to work on bone only between 5 and 7:00 o'clock and bluntly elevate tissues inferiorly. The VIP guide was placed on the glenoid and used to confirm placement and trajectory of the central guidepin. The guidepin was inserted and advanced just through the far cortex ensuring adequate central fixation length. The glenoid was prepared according to search coordinator specifications for a 10 degree augmented baseplate and central post. The baseplate was impacted onto the glenoid surface. The locking guide was then used to drill and place appropriately lengthed inferior, superior, anterior, and posterior screws. The [id number] reamer was used to confirm adequate peripheral reaming. The glenosphere was applied with the android programmer and then impacted to engage the Villar taper. It was then locked with appropriate countersinking of the setscrew. The glenosphere was inspected and found to have good fit, appropriate positioning, and no soft tissue or bony impingement. Attention was then turned back to the proximal humerus. The humeral trial cup was connected. Trialing was commenced with +3 mm liner. The shoulder was reduced and taken through range of motion with appropriate tension on the deltoid and conjoined. The trial +6 mm liner was placed, but it far too much tension difficulty attempting reduction was omitted. The trial components were removed from the proximal humerus. The wound was copiously irrigated with normal saline. The the proximal humeral stem and suture cup were assembled and brought over the proximal humerus. A small amount of vancomycin powder was distributed in the proximal humerus. The humeral component and suture cup were impacted into place and the final liner was then connected, and range of motion, stability, and tension confirmed. The shoulder was copiously irrigated with Betadine and normal saline. The deltopectoral interval was approximated with 2-0 Monocryl. Subcutaneous tissue was irrigated then closed using 2-0 Monocryl in a buried interrupted fashion. Skin was closed using 3-0 Monocryl in a buried subcuticular fashion. Skin glue was applied to the incision. A silver impregnated bandage was placed over the incision. The extremity was placed into a shoulder immobilizer. The patient awoke from anesthesia without complication and was taken to the recovery room in stable condition.
[2023-10-05] MEDS: ceFAZolin 2 GM/50 ML BAG IVPB (08:00)
[2023-10-05] MEDS: TRANEXAMIC ACID/SOD. CHL. 1,000 MG/100 ML BAG 600 MG IVPB (08:16)
--- NOTE | 2023-10-05 08:20 | W.ANESNERVE ---
Nerve Block Single Injection Procedure Date and Time Date Performed: 10/05/23 Procedure Start: 07:30 Location Where Procedure Performed Procedure Location: Day Surgery Unit Reason Performed: Postoperative Analgesia Requesting Provider: Tj Medel Timeout Performed Timeout Performed: Yes Monitoring Used ECG, Blood Pressure, SpO2 and See EMR for corresponding vital signs Sterility Sterility: Hand Hygiene, Surgical Cap, Surgical Mask, Sterile Gloves and Chlorhexidine Sedation Given During Procedure Sedation Given (Indicate Dose Given): Versed IV Dose:: 1mg Patient Mental Status Patient Mental Status: Sedate with meaningful communication (NC oxygen added) Nerve Block 1st Nerve Block: Laterality: Right Block Type: Interscalene Ultrasound Image Saved?: Yes Needle / Catheter Used: 100mm SonoPlex II Local Anesthetic Bolus (Indicate Dose Given): Lidocaine used for local infiltration of skin, Injected in 3-5ml increments after negative blood aspiration, Bupivacaine 0.5% Dose:: 10ml and Exparel Dose:: 10ml Additives (Indicate Dose Given): None Ultrasound: Sterile probe cover and gel used Nerve Stimulator: Supplement to Ultrasound use and No twitch or parasthesia noted < 0.5 mA Paresthesia: None Procedure Tolerated: No Complications and Patient tolerated well Procedure Outcome: Successful Procedure Comment: Prior to nerve block, discussed usual risk of temporary or permanent nerve injury/damage. Given his previous shoulder dislocation leaving him with temporary nerve damage, now resolved > [address] Medel, discussed potential increase in risk for temporary or permanent nerve irritation/damage causing paresthesia or motor deficit due to potential existing nerve irritation. Pt. states he would like to proceed with the block understanding the risks with present. I think this is also a reasonable plan, while recognizing potential increase chances for nerve irritation. Performed By: Ant Lima
[2023-10-05] MEDS: Bupivacaine 0.25% Pres-Free W/EPI 30 ML VIAL (09:11)
--- NOTE | 2023-10-05 11:30 | DI.RAD_ITS ---
Exam(s) XR SHOULDER RT COMPLETE 2+V EXAM: XR SHOULDER RT COMPLETE 2+V CLINICAL HISTORY: shoulder arthritis. TECHNIQUE: 2D digital imaging was performed of the right shoulder. Three images were obtained. Gra sybil and Y views were obtained. COMPARISON: CR XR SHOULDER RT COMPLETE 2+V from 07/17/2023 FINDINGS: The patient is now status post right total reverse shoulder replacement. The orthopedic hardware jeremy ears in good position. Post surgical changes are seen in the soft tissues. Degenerative changes are seen at the acromioclavicular joint. IMPRESSION: Status post right total reverse shoulder replacement. DATA REPOSITORY: RADIATION DOSE DELIVERED:
[2023-10-05] MEDS: ceFAZolin 1 GM/50 ML BAG IVPB (11:47)
--- NOTE | 2023-10-05 12:53 | W.ANESPOSTOP ---
Postoperative Evaluation Date, Time and Location Date Performed: 10/05/23 Time Performed: 12:05 Patient Location: PACU Vital Signs Most Recent Imported Vital Signs: Most Recent Vital Signs Temp Pulse Resp BP Pulse Ox 36.5 C 54 L 16 99/69 L 96 10/05/23 12:18 10/05/23 12:18 10/05/23 12:18 10/05/23 12:18 10/05/23 12:18 Pain Score Most Recent Pain Score: Most Recent Pain Score Pain Level 0 10/05/23 12:18 Assessment Mental Status: Awake (Alert & Oriented to Patient Baseline) Airway and Respiratory Function: Patent airway with normal (patient baseline) respiratory exam Cardiovascular Function: Hemodynamically Stable Hydration Status: Adequately Hydrated Nausea & Vomiting: No Nausea or Vomiting Pain: Pt. Denies Any Pain Peripheral Nerve Block: Regional nerve block not resolved at time of post operative discharge
[2023-10-05] MEDS: Lactobacillus Acidophilus CAP 1 CAP PO (14:49)
== END 2023-10-05 15:25 | disposition home or self-care (01) ==
PROVIDERS: Visit Provider Student in an Organized Health Care Education/Training Program
PROC: (CPT 23472; principal; 2023-10-05 07:30)
DX: S14.3XXA Injury of brachial plexus, initial encounter (principal); S43.084A Other dislocation of right shoulder joint, initial encounter; M21.821 Other specified acquired deformities of right upper arm; G56.21 Lesion of ulnar nerve, right upper limb; M75.101 Unspecified rotator cuff tear or rupture of right shoulder, not specified as traumatic; M12.811 Other specific arthropathies, not elsewhere classified, right shoulder; X58.XXXA Exposure to other specified factors, initial encounter
CPT/HCPCS: 23472; 23430; 76942; 73030; C9290; J0665; J0690; J1100; J1596; J2250; J2371; J2405; J2598; J2704; J3370

== ENCOUNTER 2023-10-16 13:56 | Outpatient (CLI) | payer OTHER, SELFPAY ==
--- NOTE | 2023-10-16 09:15 | DI.RAD_ITS ---
Exam(s) XR SHOULDER RT COMPLETE 2+V EXAM: XR SHOULDER RT COMPLETE 2+V INDICATION: F/U RIGHT RTSA. COMPARISON: CR XR SHOULDER RT COMPLETE 2+V from 10/05/2023 TECHNIQUE: 2D digital imaging was performed. Two views. FINDINGS: There has been no change in the alignment of the total shoulder prosthesis. There are no abnormal abdullahi rrounding bony lucencies. Degenerative changes of the AC joint are again noted. DATA REPOSITORY: RADIATION DOSE DELIVERED:
== END 2023-10-16 13:57 | disposition home or self-care (01) ==
LOC: DIORS 13:56
PROVIDERS: Visit Provider Student in an Organized Health Care Education/Training Program
DX: S43.084D Other dislocation of right shoulder joint, subsequent encounter (principal); X58.XXXD Exposure to other specified factors, subsequent encounter
CPT/HCPCS: 73030

== ENCOUNTER 2024-01-16 14:06 | Outpatient (CLI) | payer OTHER, SELFPAY ==
--- NOTE | 2024-01-16 12:45 | DI.RAD_ITS ---
Exam(s) XR SHOULDER RT COMPLETE 2+V EXAM: XR SHOULDER RT COMPLETE 2+V CLINICAL HISTORY: F/U RIGHT RTSA. TECHNIQUE: 2D digital imaging was performed. Two images were obtained. Grashey and Y views were obt ained. COMPARISON: CR XR SHOULDER RT COMPLETE 2+V from 10/16/2023 FINDINGS: BONES: There are stable post operative changes of a total reverse shoulder replacement present. No f racture or dislocation. JOINTS: The orthopedic hardware is in good position. No evidence of hardware loosening. There are d egenerative changes seen at the acromioclavicular joint. SOFT TISSUE: Normal. IMPRESSION: Stable right total reverse shoulder replacement. DATA REPOSITORY: RADIATION DOSE DELIVERED:
== END 2024-01-16 14:07 | disposition home or self-care (01) ==
LOC: DIORS 14:07
PROVIDERS: Visit Provider Student in an Organized Health Care Education/Training Program
DX: Z98.890 Other specified postprocedural states (principal)
CPT/HCPCS: 73030

== ENCOUNTER 2024-01-29 15:25 | Outpatient (CLI) | payer OTHER, SELFPAY ==
--- NOTE | 2024-01-29 11:31 | DI.RAD_ITS ---
Exam(s) XR SHOULDER RT COMPLETE 2+V EXAM: XR SHOULDER RT COMPLETE 2+V CLINICAL HISTORY: f/u rt reverse total shoulder arthroplasty. TECHNIQUE: 2D digital imaging was performed. COMPARISON: CR XR SHOULDER RT COMPLETE 2+V from 01/16/2024 FINDINGS: 3 views There is continued stable position alignment of the right shoulder reverse prosthesis. No fracture o r loosening evident. Again noted are advanced degenerative changes in the ipsilateral AC joint as well as calcification wi thin the coracoid clavicular ligament. IMPRESSION: Stable satisfactory appearance of the right shoulder reverse prosthesis. Other findings as above. DATA REPOSITORY: RADIATION DOSE DELIVERED:
== END 2024-01-29 15:26 | disposition home or self-care (01) ==
LOC: DIORS 15:26
PROVIDERS: Visit Provider Student in an Organized Health Care Education/Training Program
DX: M75.101 Unspecified rotator cuff tear or rupture of right shoulder, not specified as traumatic (principal); M12.811 Other specific arthropathies, not elsewhere classified, right shoulder
CPT/HCPCS: 73030

== ENCOUNTER 2024-02-18 02:14 | Outpatient (CLI) | payer OTHER, SELFPAY ==
--- NOTE | 2024-02-18 | DI.RAD_ITS ---
Exam(s) RF MODIFIED SPEECH BA SWALLOW TECHNIQUE: Modified barium swallow was performed in conjunction with speech pathology. CONTRAST MATERIAL: Oral barium contrast was administered. COMPARISON: No exams were available for comparison FINDINGS: Note that this is not a dedicated esophagram, distal esophagus not evaluated. There is no evidence of aspiration or penetration of thick or thin liquids, barium tablet or barium p udding. Speech pathology report to follow. IMPRESSION: No evidence of aspiration or penetration. RADIATION DOSE DELIVERED: martinez Graff=3.74 mGy
[2024-02-18] MEDS: Barium Sulfate 81% w/w for Oral Suspension 148 GM BTL 90 GM PO (09:31)
[2024-02-18] MEDS: Barium Sulfate 40% W/V 240 ML BTL 60 ML PO (09:32)
[2024-02-18] MEDS: Barium Sulfate Oral Paste 40% W/V 230 ML TUBE 60 ML PO (09:33)
[2024-02-18] MEDS: Barium Sulfate 700 MG TAB PO (09:34)
--- NOTE | 2024-02-18 13:54 | ST.MBS_ITS ---
Date of Service Date of service: 02/18/24 Time of Service: 09:00 Modified Barium Swallow Study Findings: Video fluoroscopic Swallowing Evaluation (VFSE) / Modified Barium Swallow Study (MBSS) Speech Language Pathology Report Patient referred for VFSE/MBSS given dysphagia. HPI & Patient report of function: Patient is a 73 year old male with report of pills and food sticking in throat. Symptoms have been ongoing for years. Fabiano reports hx kayode fundoplication approximately 15 years ago and reported recent esophageal dilation. He does not feel symptoms have improved since his dilation and feels his reflux has gotten worse. Medical notes not available to review. Fabiano describes small pills sticking in his throat. Food typically will stick lower in the sternal region. No significant complaints with liquid. Denies odynophagia, weight loss, or pneumonia. IMPRESSIONS: MBSS findings reveal oral pharyngeal swallow function is within functional limits for age/consistent with presbyphagia. There is no evidence of penetration, aspiration, or pharyngeal retention. Swallow safety and efficiency are preserved, and risk for aspiration pneumonia from prandial aspiration is considered low. See below for further breakdown of physiologic performance. No further ST needs identified. Film reviewed with patient with explanation on possible contributors for symptoms: 1) transferred sensation from esophageal dysfunction 2) xerostomia contributing to dry pills sticking. Encouraged increase in hydration (decrease in caffeinated beverages and increase in non caffeinated beverages - patient acknowledges poor hydration) and trial of pills in spoonful of applesauce. He was open to these suggestions. RECOMMENDATIONS: Diet Texture/IDDSI Level Recommendation:? SOLIDS 7-Regular Solids LIQUIDS? 0-Thin Liquids MEDICATIONS Whole or cut if able (discuss with MD) in spoonful applesauce, yogurt, pudding, oatmeal Risk Management Strategies:? Behavioral reflux precautions, including upright position during + 90 mins after meals. Small bites, approx [id number] Small sips, approx 10 mL Multiple swallows per bolus to encourage clearance of pharyngeal stasis/residue PLAN: No further ST warranted. Procedure only. OBJECTIVE Videofluoroscopic Swallow Evaluation (VFSE/MBSS) was conducted in the lateral projection by Speech-Language Pathologist, in collaboration with Radiologist, to evaluate oropharyngeal swallow function. Anatomic view under fluoroscopy: WFL PO Barium Contrast Trials Oral barium water-soluble contrast was administered as follows: IDDSI Level 0 Varibar thin liquid (40% w/v) IDDSI Level 2 Varibar nectar thick/mildly thick liquid (40% w/v) IDDSI Level 4 Varibar pudding/pureed/extremely thick (40% w/v) 13 mm barium tablet taken with Thin. MBSImP Component Scores: COMPONENT Scale SCORE 1 Lip closure (0-4) 0 Resulted in no labial escape 2 Hold Position (0-3) 0 Maintained a cohesive bolus between tongue to palatal seal 3 Bolus Preparation (0-4) 0 Resulted in timely and efficient chewing and mashing 4 Bolus Transport (0-4) 0 Was with brisk tongue motion 5 Oral Residue (0-4) 0 Was not observed. There was complete oral clearance 6 Swallow Initiation (0-4) 0 Occurred as bolus head at posterior angle of the mandibular ramus 7 Soft Palate Elevation (0-4) 0 Resulted in no bolus between soft palate and the pharyngeal wall 8 Laryngeal Elevation (0-3) 0 Demonstrated complete superior movement of thyroid cartilage with complete approximation of arytenoids to epiglottic petiole 9 Anterior Hyoid Motion (0-2) 0 Demonstrated complete anterior movement 10 Epiglottic Movement (0-2) 0 Resulted in complete inversion 11 Laryngeal Closure (0-2) 0 Was complete with no air or contrast in laryngeal vestibule 12 Pharyngeal Stripping Wave (0-2) 0 Was present and complete 13 Pharyngeal Contraction (0-3) 0 Was complete 14 PES Opening (0-3) 0 Was completely distended and complete duration with no obstruction of flow 15 Tongue Base Retraction (0-4) 0 Allowed no contrast between the tongue base and posterior pharyngeal wall 16 Pharyngeal Residue (0-4) 0 Was not present. There was complete pharyngeal clearance 17 Esophageal Clearance (0-4) NA Results: COMPONENT Scale SCORE 1 Oral Score (0-18) 0 2 Pharyngeal Score (0-29) 0 3 Esophageal Score (0-4) 0 Functional Oral Intake Scale: COMPONENT Scale SCORE 1 Pre-Study (1-7) 7 Total oral intake with no restrictions 2 Post-Study (1-7) 7 Total oral intake with no restrictions Penetration-Aspiration Scale: COMPONENT Scale SCORE 1 Thin liquid (1-8) 1 Contrast did not enter the airway 2 [place] thick (1-8) 1 Contrast did not enter the airway 3 Honey thick (1-8) NA 4 Pudding thick (1-8) 1 Contrast did not enter the airway 5 Cookie (1-8) NA Thank you for allowing us to take part in this patient's care. Please feel free to contact the [facility] Speech Language Pathology Department with any questions/concerns.
== END 2024-02-18 02:34 ==
PROVIDERS: Visit Provider Speech-Language Pathologist
DX: R13.19 Other dysphagia (principal)
CPT/HCPCS: 92526; 74221

== ENCOUNTER 2024-03-10 15:38 | Outpatient (CLI) | payer OTHER, SELFPAY ==
--- NOTE | 2024-03-10 13:45 | DI.RAD_ITS ---
Exam(s) XR HIP LT COMPLETE AP PELVIS EXAM: XR HIP LT COMPLETE AP PELVIS CLINICAL HISTORY: hip pain. TECHNIQUE: 2D digital imaging was performed. COMPARISON: No exams were available for comparison FINDINGS: Two views No evidence of pelvic nor hip fracture. Mild degenerative changes in the left hip noted. No signifi cant osseous lesions. Bone density is age-appropriate. IMPRESSION: Mild degenerative changes in the left hip. DATA REPOSITORY: RADIATION DOSE DELIVERED:
--- NOTE | 2024-03-10 13:45 | DI.RAD_ITS ---
Exam(s) XR KNEE LT 3V AP,LAT,JOJO EXAM: XR KNEE LT 3V AP,LAT,JOJO CLINICAL HISTORY: TKR pain. TECHNIQUE: 2D digital imaging was performed. Three images were obtained. AP, merchant's and lateral views were obtained. COMPARISON: CR LEFT KNEE LIMITED 1 OR 2 VIEWS from 10/08/2013 FINDINGS: BONES: There are stable post operative changes of a left total knee replacement present. No fracture or dislocation. JOINTS: The orthopedic hardware is in good position. No evidence of hardware loosening. SOFT TISSUE: Normal. IMPRESSION: Stable left total knee replacement. DATA REPOSITORY: RADIATION DOSE DELIVERED:
== END 2024-03-10 15:39 | disposition home or self-care (01) ==
LOC: DIORS 15:38
PROVIDERS: Visit Provider Physician Assistant
DX: Z47.1 Aftercare following joint replacement surgery (principal); M16.0 Bilateral primary osteoarthritis of hip; Z96.652 Presence of left artificial knee joint
CPT/HCPCS: 73562; 73502

== ENCOUNTER 2024-04-01 15:28 | Outpatient (CLI) | payer OTHER, SELFPAY ==
--- NOTE | 2024-04-01 11:14 | DI.RAD_ITS ---
Exam(s) XR SHOULDER RT COMPLETE 2+V EXAM: XR SHOULDER RT COMPLETE 2+V CLINICAL HISTORY: F/U RIGHT RTSA. TECHNIQUE: 2D digital imaging was performed. Two images were obtained. Grashey and Y views were obt ained. COMPARISON: CR XR SHOULDER RT COMPLETE 2+V from 01/29/2024 FINDINGS: BONES: There are stable post operative changes of a right total reverse shoulder arthroplasty present . No fracture or dislocation. There are degenerative changes again seen at the acromioclavicular romario nt. JOINTS: The orthopedic hardware is in good position. No evidence of hardware loosening. SOFT TISSUE: Normal. IMPRESSION: Stable right reverse total shoulder arthroplasty. DATA REPOSITORY: RADIATION DOSE DELIVERED:
== END 2024-04-01 15:29 | disposition home or self-care (01) ==
LOC: DIORS 15:28
PROVIDERS: Visit Provider Student in an Organized Health Care Education/Training Program
DX: M75.101 Unspecified rotator cuff tear or rupture of right shoulder, not specified as traumatic (principal); M12.811 Other specific arthropathies, not elsewhere classified, right shoulder; Z96.611 Presence of right artificial shoulder joint
CPT/HCPCS: 73030

== ENCOUNTER 2024-04-07 18:15 | Emergency (ER) | payer OTHER, SELFPAY ==
[2024-04-07] VITALS (24 sets, daily range): BP systolic 139–176; BP diastolic 73–92; PULSE 42–61; RESP 0–31; TEMP 36.5–36.8; O2SAT 89–100
--- NOTE | 2024-04-07 18:47 | ED.GENADUL_ITS ---
Discharge Plan Disposition Patient Disposition: Other Disposition Not Listed Other Facility: ED-to-ED transfer to [facility] Discharge Details Clinical Impression: Fractured rib, Lower back pain, Neck discomfort Primary Care Provider: None,None ED Provider: Jennifer Lam Home Meds and New Rx's Prescriptions: No Action methotrexate sodium 2.5 mg tablet 15 mg PO QWEEK Patient Comments: takes 3 in the am and 3 at night. 01/29/24 jwo folic acid 1 mg tablet 1 mg PO DAILY donepezil 10 mg tablet 10 mg PO DAILY hydroxychloroquine 200 mg tablet 200 mg PO BID rosuvastatin 5 mg tablet 5 mg PO DAILY turmeric 400 mg capsule 400 mg PO DAILY omega 0-[id number]-qct-fish oil [Fish Oil] 60-90-500 mg capsule 1 cap PO DAILY cholecalciferol (vitamin D3) 25 mcg (1,000 unit) capsule 25 mcg PO DAILY gabapentin 300 mg capsule 300 mg PO QHS latanoprost 2.5 ML drops 1 drp Ophthalmic DAILY acetaminophen [Tylenol Arthritis] 650 MG tablet extended release 650 mg PO PRN lidocaine [Lidoderm] 5 % adhesive patch,medicated 1 patch topical DAILY Qty: 15 0RF Rx Instructions: leave on most painful area for up to 12 hrs cyclobenzaprine 10 mg tablet 10 mg PO HS PRN (Reason: muscle spasm) Qty: 7 0RF prazosin 5 mg Capsule 20 mg PO HS tamsulosin 0.4 mg Capsule 0.4 mg PO DAILY duloxetine 60 mg Capsule, Delayed Rel Sprinkle 60 mg PO DAILY Betimol 0.5 % drops 1 drp ophthalmic (eye) DAILY HPI General Date/Time Provider Initiated Documentation: 04/07/24 18:38 . HPI Narrative: Fabiano is a 73 year old male who presents to the emergency department today for evaluation of head and L rib injury with lower back pain s/p fall. He reports that he fell sideways while he was working his driveway, landing on a metal bar. He did have loss of consciousness, struck the left temporal area of his head. He currently is reporting a left-sided headache that radiates all over. He has dizziness when he turns his head towards the left. Denies vision changes, new neck pain, nausea/vomiting, difficulty breathing other than due to chest discomfort with deep inspiration, extremity weakness/tingling/injury. Past medical history is significant for arthritis, including RA, as wel as GERD and PTSD. Physical exam remarkable for abrasion to L side of head in temporal area. Tenderness with palpation of left anterior ribs. Easy work of breathing, lung sounds clear bilaterally. Normal heart sounds. Abdomen is soft, nondistended, nontender to palpation. No ecchymosis or deformity noted to chest wall. PERRL, EOMs intact. Facial strength normal. No raccoon eyes or bhandari sign. He does have some tenderness to palpation along lumbar spine, no point tenderness/step- off/deformity. Pain is worsened with movement. 5/5 muscle strength to lower extremities, full ROM. D/dx includes but is not limited to: fracture, intracranial hemorrhage, traumatic pneumothorax/hemothorax, hollow or solid organ injury I independently interpreted the following tests: CBC, CMP, UA reassuring. CT head and c-spine unremarkable, however pt continues to report pain shooting into L side of head with movement of head to the L. CT chest/abd/pelvis remarkable for 4th L rib fracture and ?spinal epidural hematoma in lumbar spine. Discussed findings with [facility] radiologist. Repeated neuro exam on lower extremities. Sensation grossly intact, 5/5 muscle strength. No saddle anesthesia/parenthesia or change in bowel/bladder control. Consulted with Dr Estrada, trauma service at [facility]. Pt to be transferred ED-to-ED for trauma consult with spine. Pt voices agreement with plan of care. While in the emergency department, Fabiano received APAP for discomfort. C collar was applied. Awaiting transport to [facility]. Related Data Home Medications ?Medication ?Instructions ?Recorded ?Confirmed acetaminophen 650 mg 650 mg PO PRN 10/04/12 04/07/24 tablet,extended release (Tylenol Arthritis) latanoprost 0.005 % eye drops 1 drp ophthalmic (eye) DAILY 10/04/12 04/07/24 cyclobenzaprine 10 mg tablet 10 mg PO HS PRN muscle spasm #7 01/21/22 04/07/24 tabs lidocaine 5 % topical patch 1 patch topical DAILY #15 ea 01/21/22 04/07/24 (Lidoderm) duloxetine 60 mg capsule,delayed 60 mg PO DAILY 03/05/22 04/07/24 release sprinkle prazosin 5 mg capsule 20 mg PO HS 03/05/22 04/07/24 tamsulosin 0.4 mg capsule 0.4 mg PO DAILY 03/05/22 04/07/24 cholecalciferol (vitamin D3) 25 25 mcg PO DAILY 07/17/23 04/07/24 mcg (1,000 unit) capsule donepezil 10 mg tablet 10 mg PO DAILY 07/17/23 04/07/24 folic acid 1 mg tablet 1 mg PO DAILY 07/17/23 04/07/24 hydroxychloroquine 200 mg tablet 200 mg PO BID 07/17/23 04/07/24 omega 9-vei-eda-fish oil 60 mg-90 1 cap PO DAILY 07/17/23 04/07/24 mg-500 mg capsule (Fish Oil) rosuvastatin 5 mg tablet 5 mg PO DAILY 07/17/23 04/07/24 turmeric 400 mg capsule 400 mg PO DAILY 07/17/23 04/07/24 timolol 0.5 % eye drops (Betimol) 1 drp ophthalmic (eye) DAILY 10/05/23 04/07/24 gabapentin 300 mg capsule 300 mg PO QHS 01/16/24 04/07/24 methotrexate sodium 2.5 mg tablet 15 mg PO QWEEK 01/29/24 04/07/24 Previous Rx's ?Medication ?Instructions ?Recorded cyclobenzaprine 10 mg tablet 10 mg PO HS PRN muscle spasm #7 01/21/22 tabs lidocaine 5 % topical patch 1 patch topical DAILY #15 ea 01/21/22 (Lidoderm) Allergies Allergy/AdvReac Type Severity Reaction Status Date / Time gluten AdvReac Intermediate Other (See Verified 04/07/24 18:24 Comment) morphine AdvReac Mild HALLUNCINAT Verified 04/07/24 18:24 IONS General Stated Complaint: Fall/Non TraumaCriteria ELSIE: 3 Review of Systems Narrative: see HPI Exam Const General: cooperative, healthy appearing, comfortable, no acute distress, well developed and well groomed Nutritional Appearance: average body habitus and well nourished Orientation: alert and oriented x3 HENMT Head: abrasion (L forehead), no Bhandari's sign, no palpable skull fracture and no raccoon eyes Ears: hearing grossly normal bilaterally General nose exam: external nose normal Face and sinus: normal facial exam Mouth: oral mucosae normal Neck Neck: normal visual inspection, full ROM and trachea midline Chest Chest: no crepitus and tenderness rib (4th L anterior rib) Resp Effort & Inspection: normal respiratory effort and able to speak in complete sentences Auscultation: clear to auscultation bilaterally Cardio Rate: regular rate Rhythm: regular rhythm GI Inspection: normal to inspection and non-distended Palpation: soft and nontender Auscultation: normal bowel sounds Back/Spine/Pelvis Cervical Spine: cervical ROM normal, collar present, pain with cervical ROM (with L sided rotation) and No step off deformity Thoracic/Lumbar Spine: lumbar spinal tenderness (no point tenderness) Neuro General: patient alert, tone normal, moves all extremities and no focal motor deficits Cranial Nerves: EOM intact bilaterally, no nystagmus and facial strength normal Cognition: normal cognition Speech: speech normal Motor: muscle tone normal throughout and strength 5/5 throughout Sensory Exam: no sensory deficits noted Extrem General: normal to inspection Course Vital Signs Vital signs: Vital Signs Temperature 36.8 C 04/07/24 18:14 Pulse 57 L 04/07/24 18:14 Respiratory Rate 20 04/07/24 18:14 Blood Pressure 176/92 H 04/07/24 18:14 Pulse Oximetry 100 04/07/24 18:14 Temperature 36.8 C 04/07/24 18:14 Temperature Source Temporal Artery Scan 04/07/24 18:14 Pulse 57 L 04/07/24 18:14 Respiratory Rate 20 04/07/24 18:14 Respiratory Effort Normal, Non-Labored 04/07/24 18:21 Blood Pressure 176/92 H 04/07/24 18:14 Pulse Oximetry 100 04/07/24 18:14 Oxygen Delivery Method Room Air 04/07/24 18:14 Oxygen Flow Rate 0 04/07/24 18:14 Pain Level 8 04/07/24 18:14 Medical Decision Making Quality:SDOH Health Related Social Needs: No Data to Display PFSH All Active Problems (Updated 04/07/24 @ 22:29 by Jennifer Roberts) Neck discomfort (Acute) Lower back pain (Acute) Fractured rib (Acute) Osteoarthritis of left hip (Acute) POCUS injection: 04/04/24 Rotator cuff tear arthropathy of right shoulder (Acute) Cubital tunnel syndrome on right (Acute) Medical History (Updated 04/07/24 @ 22:29 by Jennifer Roberts) Secondary osteoarthritis Problems in relationship with spouse or partner Periodic limb movement disorder Pain in unspecified wrist Pain in right knee Other polyosteoarthritis Other microscopic hematuria Other male erectile dysfunction Occupational exposure to other air contaminants Mild obstructive sleep apnea Mild cognitive impairment of uncertain or unknown etiology Major depressive disorder, single episode Insomnia, unspecified Gastro-esophageal reflux disease without esophagitis Dysphagia, pharyngoesophageal phase Contact with and (suspected) exposure to other hazardous substances Calculus of kidney Arthropathic psoriasis, unspecified Closed dislocation of right glenohumeral joint Hill Sachs deformity, right Injury of right brachial plexus PTSD (post-traumatic stress disorder) Pt. states no potential triggers Arthritis Surgical History (Updated 10/05/23 @ 06:24 by Bryce Garcia) History of Yanira fundoplication S/P right knee arthroscopy History of bowel resection 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 Social History Smoking/Tobacco Use Status: Former Tobacco Use Quit Date: 05/28/71 Smoking risk assessment performed?: Yes Alcohol Intake: former Drug use: Never Substance use type: does not use Housing: house Current gender identity: male Do you feel safe at home: Yes Do you feel safe in your relationship?: Yes
[2024-04-07] MEDS: Omnipaque 350 MG/ML 100 ML BTL IJ (19:02)
[2024-04-07] MEDS: Normal Saline - Diluent 50 ML VIAL IJ (19:03)
--- NOTE | 2024-04-07 19:06 | DI.CT_ITS ---
Exam(s) CT HEAD CERVICAL SPINE WO EXAM: CT HEAD CERVICAL SPINE WO CLINICAL HISTORY: head injury, LOC. TECHNIQUE: Imaging Protocol: Axial computed tomography images with coronal and sagittal reformatted images were created and reviewed COMPARISON: CT CT HEAD CERVICAL SPINE WO from 01/21/2022 FINDINGS: Head CT Ventricles and Extra axial spaces: Normal in size and morphology for the patient's age. Hemorrhage: None. Cerebral parenchyma: No evidence of mass or acute infarct. Mild white matter changes consistent wi th microangiopathy. Midline shift: None. Brainstem/Cerebellum: Normal. Calvarium: Normal. Visualized Paranasal sinuses/Mastoids: Clear. Soft tissues: Mild right frontal scalp swelling. Cervical Spine CT BONES: Vertebral body heights are maintained. Alignment is normal. There is no evidence of acute frac ture. Degenerative disc changes and facet degenerative changes are seen . SOFT TISSUES: No paraspinal hematoma. The airway appears intact. No pneumothorax is seen at the lung apices. Three point 3 x 1.6 centimeter lipoma noted in the soft subcutaneous fat of the left posterior neck. Unchanged from 2021. IMPRESSION: Head CT: No acute abnormality. C-spine CT: Degenerative changes, no acute abnormality. RADIATION DOSE DELIVERED: 1,288.11mGy.cm Total DLP DATA REPOSITORY: All CT scans at this facility are submitted to the National Radiology Data Registry (NRDR) Dose Index Registry (DIR) with the [employer] ([employer]). RADIATION OPTIMIZATION: All CT scans at this facility use at least one of these dose optimization te chniques: automated exposure control; mA and/or kV adjustment per patient size (includes targeted exa ms where dose is matched to clinical indication); or iterative reconstruction.
--- NOTE | 2024-04-07 19:07 | DI.CT_ITS ---
Exam(s) CT CHEST/ABD/PEL W CT THORACIC LUMBAR SPINE REC EXAM: CT CHEST/ABD/PEL W CLINICAL HISTORY: trauma, landed on L side, pain with inspiration. TECHNIQUE: Imaging Protocol: Axial computed tomography images with coronal and sagittal reformatted images were created and reviewed. Computer aided detection (CAD) was utilized. Axial, coronal and sagittal images of the thoracic and lumbar spine were reconstructed from the chest abdomen pelvic CT in bone algorithm. CONTRAST MATERIAL: Intravenous: Omnipaque 350 Contrast volume:100 ml Oral: no COMPARISON: CT CT THORACIC LUMBAR SPINE REC from 01/21/[address] CHEST/ABD/PEL W from 01/21/2022 CR XR CHEST 2V PA LATERAL from 06/08/2023 FINDINGS: CHEST: Exam limited by motion. Tracheobronchial tree: Patent. Pulmonary parenchyma: No consolidation or dominant measurable mass. Stable area of scar scarring at the left diaphragm. Pleura: No effusion or pneumothorax. Mediastinum: Within normal limits. Aorta: Thoracic portion non-dilated. Pulmonary arteries: No visible emboli. Heart: Mildly enlarged. No pericardial effusion. Bones: Right shoulder prosthesis creates artifact. No lytic or blastic lesions.No acute compression fractures. Stable mild anterior wedging of upper and mid thoracic vertebral bodies. Soft tissues: Unremarkable. ABDOMEN and PELVIS: Liver: Normal density. No measurable mass. Gallbladder and biliary tract: No evidence of stones or wall thickening. No biliary dilatation. Pancreas: Normal density, no abnormal calcifications or inflammatory process. Spleen: Normal. Kidneys: Normal size. Our case reid of right kidney.. Nonobstructing stone lower pole right kidney. . No obstructive uropathy. No suspicious masses seen. Adrenal glands: No masses seen. Aorta: Abdominal portion non-dilated. Lymph nodes: Within normal limits. Soft tissues: Unremarkable. Bladder: Unremarkable. Bowel: No obstruction or bowel wall thickening. Large quantity of stool. Prominent sigmoid diverti culosis. Peritoneal cavity: No ascites. No focal collection. No mesenteric inflammatory response. No free ai r. Bones: No acute fracture identified. There is increased density within the central canal, along the posterior border of the lumbar spine from L3 through S1. The findings could be artifactual however t he epidural hematoma should be considered. Reproductive organs: Within normal limits. IMPRESSION: No acute abnormality in the chest. Evaluation for rib fractures limited due to motion. No acute organ injury. No acute spine or pelvic fracture. Increased density within the anterior epidural space in the lumbar region may represent epidural fadi kahlil versus artifact. MRI recommended for further evaluation. RADIATION DOSE DELIVERED: 351.79mGy.cm Total DLP DATA REPOSITORY: All CT scans at this facility are submitted to the National Radiology Data Registry (NRDR) Dose Index Registry (DIR) with the [employer] ([employer]). RADIATION OPTIMIZATION: All CT scans at this facility use at least one of these dose optimization te chniques: automated exposure control; mA and/or kV adjustment per patient size (includes targeted exa ms where dose is matched to clinical indication); or iterative reconstruction.
[2024-04-07 19:20] LABS: HCT 36.6 % (40.0-50.0); HGB 12.3 g/dL (13.5-17.5); MCH 30.4 pg (27.0-33.0); MCHC 33.6 % (32.0-36.0); MCV 91 fL (80-95); MPV 9.2 fL (8.0-11.0); Platelet Count 207 10^3/uL (130-400); RBC 4.04 10^6/uL (4.36-5.78); RDW 14.5 % (11.8-14.1); RDW-SD 47.8 fL; WBC 7.57 10^3/uL (4.4-10.8)
[2024-04-07 19:29] LABS: ALT 22 U/L (16-63); AST 23 U/L (15-37); Albumin 3.6 g/dL (3.4-5.0); Alkaline Phosphatase 55 U/L (46-116); Anion Gap 7.6 mmol/L (3-11); BUN 21 mg/dL (7-18); Bilirubin, Total 0.65 mg/dL (0.2-1.0); CO2 29.4 mmol/L (21.0-32.0); CREATININE 0.9 mg/dL (0.70-1.30); Calcium 8.7 mg/dL (8.5-10.1); Chloride 104 mmol/L (98-107); Estimated GFR 90.18 (mL/min/1.73m2); Glucose 90 mg/dL (74-106); Lipase 32 U/L (16-77); Sodium 141 mmol/L (136-145); Total Protein 6.8 g/dL (6.4-8.2)
--- NOTE | 2024-04-07 19:35 | DI.VRAD_ITS ---
PROCEDURE INFORMATION: Exam: CT Head Without Contrast Exam date and time: 04/07/2024 6:43 PM Age: 73 years old Clinical indication: Injury or trauma; Fall; Blunt trauma (contusions or hematomas); Consciousness not specified; Injury date: 04/07/24; Patient HX: Head injury, loc TECHNIQUE: Imaging protocol: Computed tomography of the head without contrast. Radiation optimization: All CT scans at this facility use at least one of these dose optimization techniques: automated exposure control; mA and/or kV adjustment per patient size (includes targeted exams where dose is matched to clinical indication); or iterative reconstruction. COMPARISON: CT HEAD CERVICAL SPINE WO 01/21/2022 3:50 PM FINDINGS: Brain: There is no acute intracranial hemorrhage, mass effect or midline shift. No large acute territorial infarct identified. There are patchy regions of hypodensity in the periventricular and subcortical white matter, likely on the basis of chronic microvascular ischemic disease. Bilateral basal ganglia calcifications are noted. Cerebral ventricles: The ventricles and sulci are prominent in size, which is at least in part due to global cerebral volume loss. Paranasal sinuses: Visualized sinuses are unremarkable. No fluid levels. Mastoid air cells: Visualized mastoid air cells are well aerated. Bones: Unremarkable. No acute fracture. Soft tissues: Unremarkable. IMPRESSION: No acute intracranial hemorrhage, mass effect or midline shift. PROCEDURE INFORMATION: Exam: CT Cervical Spine Without Contrast Exam date and time: 04/07/2024 6:43 PM Age: 73 years old Clinical indication: Injury or trauma; Fall; Blunt trauma (contusions or hematomas); Consciousness not specified; Injury date: 04/07/24; Patient HX: Head injury, loc TECHNIQUE: Imaging protocol: Computed tomography of the cervical spine without contrast. Radiation optimization: All CT scans at this facility use at least one of these dose optimization techniques: automated exposure control; mA and/or kV adjustment per patient size (includes targeted exams where dose is matched to clinical indication); or iterative reconstruction. COMPARISON: CT HEAD CERVICAL SPINE WO 01/21/2022 3:50 PM FINDINGS: Bones: There is straightening of the cervical lordosis, possibly related to neck spasm. No acute fracture. There is multilevel degenerative disc disease and bilateral uncovertebral and facet arthropathy causing bilateral neural foraminal narrowing most prominent at right C3-C4 and bilateral C4-C5 and C5-C6 levels. No significant spinal canal stenosis. Lungs: Lung apices are normal. Soft tissues: Incidentally noted is a 3.2 x 1.5 cm subcutaneous fat containing lesion in the left posterior cervical region. IMPRESSION: 1. No acute fracture. Multilevel degenerative changes as described. 2. Incidentally noted subcutaneous fat containing lesion in the left posterior neck, likely a lipoma or other fat containing lesion. Dictated and Authenticated by: Lila Ashley MD. Ordering:KESHAV Rodriguez MD
[2024-04-07 19:48] LABS: Bilirubin Negative (Negative); Blood Negative (Negative); Clarity Clear (Clear); Glucose Negative (Negative); Ketones Negative (Negative); Leukocyte Esterase Negative (Negative); Nitrite Negative (Negative); Specific Gravity 1.015 (1.005-1.025); pH 8.5 (5-8)
[2024-04-07 20:07] LABS: Bacteria Rare HPF (Negative); Epithelial Cells Rare HPF (Negative); RBC 0-2 HPF (0-2)
[2024-04-07 20:08] LABS: C & S Indicated? No; Casts 5-10 Hyaline LPF (Negative)
--- NOTE | 2024-04-07 20:22 | DI.VRAD_ITS ---
Addendum created by Lila Ashley MD on 04/07/2024 9:11:52 PM EST: THIS REPORT CONTAINS FINDINGS THAT MAY BE CRITICAL TO PATIENT CARE. The findings were verbally communicated via telephone conference with MEREDITH KOTHARI at 9:05 PM EST on 04/07/2024. The findings were acknowledged and understood. Addendum created by Lila Ashley MD on 04/07/2024 8:59:10 PM EST: Within the spinal canal, there is increased density noted in the anterior epidural space which is not just seen at the level of the intervertebral body discs, therefore hemorrhage in this region cannot be excluded. Clinical correlation is recommended to evaluate for symptoms in this region and lumbar spine MRI without contrast is recommended for further evaluation. Initial report created on 04/07/2024 8:22:16 PM EST: PROCEDURE INFORMATION: Exam: CT Thoracic Spine Without Contrast Exam date and time: 04/07/2024 6:50 PM Age: 73 years old Clinical indication: Injury or trauma; Fall; Blunt trauma (contusions or hematomas); Injury date: 04/07/24; Patient HX: Trauma, lower back pain TECHNIQUE: Imaging protocol: Computed tomography of the thoracic spine without contrast. Radiation optimization: All CT scans at this facility use at least one of these dose optimization techniques: automated exposure control; mA and/or kV adjustment per patient size (includes targeted exams where dose is matched to clinical indication); or iterative reconstruction. COMPARISON: CT THORACIC LUMBAR SPINE REC 01/21/2022 3:59 PM FINDINGS: Bones/joints: No acute fracture. Left superior endplate deformities noted in the T1-T2 vertebral bodies, likely secondary to degenerative changes. Soft tissues: Unremarkable. IMPRESSION: No acute fracture. PROCEDURE INFORMATION: Exam: CT Lumbar Spine Without Contrast Exam date and time: 04/07/2024 6:50 PM Age: 73 years old Clinical indication: Injury or trauma; Fall; Blunt trauma (contusions or hematomas); Injury date: 04/07/24; Patient HX: Trauma, lower back pain TECHNIQUE: Imaging protocol: Computed tomography of the lumbar spine without contrast. Radiation optimization: All CT scans at this facility use at least one of these dose optimization techniques: automated exposure control; mA and/or kV adjustment per patient size (includes targeted exams where dose is matched to clinical indication); or iterative reconstruction. COMPARISON: CT THORACIC LUMBAR SPINE REC 01/21/2022 3:59 PM FINDINGS: Bones/joints: No acute fracture. No vertebral body listhesis:.There is multilevel degenerative disc disease and bilateral uncovertebral and facet arthropathy causing bilateral neural foraminal narrowing most prominent at L3-L4 and L4-L5. No significant spinal canal stenosis. Soft tissues: Unremarkable. IMPRESSION: No acute fracture. Multilevel degenerative changes as described . Dictated and Authenticated by: Lila Ashley MD. Ordering:KESHAV Rodriguez MD
--- NOTE | 2024-04-07 21:19 | DI.VRAD_ITS ---
PROCEDURE INFORMATION: Exam: CT Chest With Contrast; Diagnostic Exam date and time: 04/07/2024 6:50 PM Age: 73 years old Clinical indication: Injury or trauma; Fall; Generalized; Blunt trauma (contusions or hematomas); Injury date: 04/07/24; Patient HX: Trauma, landed on L side, pain with inspiration TECHNIQUE: Imaging protocol: Diagnostic computed tomography of the chest with contrast. Radiation optimization: All CT scans at this facility use at least one of these dose optimization techniques: automated exposure control; mA and/or kV adjustment per patient size (includes targeted exams where dose is matched to clinical indication); or iterative reconstruction. Contrast material: [id number]; Contrast volume: 100 ml; Contrast route: INTRAVENOUS (IV); COMPARISON: CT CHEST/ABD/PEL W 01/21/2022 3:59 PM FINDINGS: Limitations: There is motion artifact in the region of the chest, limiting evaluation fractures. Lungs: Linear atelectasis noted in the bilateral lung bases. Incidentally noted is a 1.9 cm solid nodule at the left lung base, unchanged since the prior examination. No significant consolidation. Pleural spaces: No pneumothorax. No pleural effusion. Heart: No cardiomegaly. No pericardial effusion. Lymph nodes: No enlarged lymph nodes. Vasculature: No aortic aneurysm. Of note, the left vertebral artery originates from the aortic arch. Bones/joints: Right shoulder arthroplasty partially visualized. There is concern for acute nondisplaced fracture of the left 4th rib, however not well evaluated due to motion in this region. Soft tissues: No significant subcutaneous soft tissue hematoma. IMPRESSION: 1. Possible nondisplaced left 4th rib fracture, however not well evaluated due to significant motion. Correlate with any point tenderness in this region. 2. Stable 1.9 cm left pleural-based lung nodule. PROCEDURE INFORMATION: Exam: CT Abdomen And Pelvis With Contrast Exam date and time: 04/07/2024 6:50 PM Age: 73 years old Clinical indication: Injury or trauma; Fall; Generalized; Blunt trauma (contusions or hematomas); Injury date: 04/07/24; Patient HX: Trauma, landed on L side, pain with inspiration TECHNIQUE: Imaging protocol: Computed tomography of the abdomen and pelvis with contrast. Radiation optimization: All CT scans at this facility use at least one of these dose optimization techniques: automated exposure control; mA and/or kV adjustment per patient size (includes targeted exams where dose is matched to clinical indication); or iterative reconstruction. Contrast material: [id number]; Contrast volume: 100 ml; Contrast route: INTRAVENOUS (IV); COMPARISON: CT CHEST/ABD/PEL W 01/21/2022 3:59 PM FINDINGS: Limitations: Motion artifact does moderately limit the sensitivity of this examination. Liver: Unremarkable liver. No mass identified. Gallbladder and biliary ducts: The gallbladder is unremarkable. No calcified stones. No ductal dilation. Pancreas: No ductal dilation. No pancreatic lesion seen. Spleen: The spleen is unremarkable. No splenomegaly. Adrenal glands: The adrenal glands are unremarkable. No defined mass. Kidneys and ureters: No hydronephrosis. 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 Stomach and bowel: There is sigmoid diverticulosis without acute diverticulitis. No bowel obstruction. Incidentally noted is extension of the stomach soft tissue to the left lung base nodule. Appendix: No evidence of appendicitis. Intraperitoneal space: No free air. No significant fluid collection. Vasculature: No abdominal aortic aneurysm. Lymph nodes: No enlarged lymph nodes. Urinary bladder: Unremarkable as visualized. Reproductive: Unremarkable as visualized. Bones/joints: No acute fracture. Soft tissues: Unremarkable. Other findings: Increased density is noted within the anterior epidural space of the lumbar spine concerning for hematoma in the setting of trauma. IMPRESSION: 1. No evidence of acute solid organ injury. Increased density within the anterior epidural space of the lumbar spine is concerning for hematoma in the setting of trauma. Correlate with clinical findings and MRI is recommended for further evaluation. 2. THIS REPORT CONTAINS FINDINGS THAT MAY BE CRITICAL TO PATIENT CARE. The findings were verbally communicated via telephone conference with MEREDITH KOTHARI at 9:05 PM EST on 04/07/2024. The findings were acknowledged and understood. Dictated and Authenticated by: Lila Ashley MD. Ordering:KESHAV Rodriguez MD
[2024-04-07] MEDS: Acetaminophen 325 MG TAB 650 MG PO (21:27)
[2024-04-07] MEDS: Lidocaine 5% Patch 1 PATCH TP (21:27)
== END 2024-04-07 23:12 | disposition other institution (70) ==
PROVIDERS: Emergency Provider Nurse Practitioner Family
DX: S22.32XA Fracture of one rib, left side, initial encounter for closed fracture (principal); M54.50 Low back pain, unspecified; M54.2 Cervicalgia; S00.81XA Abrasion of other part of head, initial encounter; W18.39XA Other fall on same level, initial encounter; Y93.01 Activity, walking, marching and hiking; Y92.014 Private driveway to single-family (private) house as the place of occurrence of the external cause
CPT/HCPCS: 36415; 74177; 80053; 83690; 85027; 99285; 70450; 71260; 72125; 81003; 81015; J3490

== ENCOUNTER 2024-09-29 15:34 | Outpatient (CLI) | payer OTHER, SELFPAY ==
--- NOTE | 2024-09-29 14:00 | DI.RAD_ITS ---
Exam(s) XR HIP LT COMPLETE AP PELVIS EXAM: XR HIP LT COMPLETE AP PELVIS CLINICAL HISTORY: left hip DJD. TECHNIQUE: 2D digital imaging was performed. Two views. COMPARISON: CR XR HIP LT COMPLETE AP PELVIS from 03/10/2024 FINDINGS: BONES: No acute fracture is present. No bony destructive lesion is seen. JOINTS: No dislocation present. The SI joints and pubic symphysis are intact. The hip joint spaces a re maintained. There is mild bilateral acetabular spurring. SOFT TISSUE: Normal. IMPRESSION: Mild degenerative changes of both hips. DATA REPOSITORY: RADIATION DOSE DELIVERED:
== END 2024-09-29 15:35 | disposition home or self-care (01) ==
LOC: DIORS 15:35
PROVIDERS: PCP Physician Assistant; Referring Provider Physician Assistant; Visit Provider Physician Assistant
DX: M16.12 Unilateral primary osteoarthritis, left hip (principal); M16.11 Unilateral primary osteoarthritis, right hip
CPT/HCPCS: 73502

== ENCOUNTER 2024-10-08 11:00 | Outpatient (CLI) | payer OTHER, SELFPAY ==
--- NOTE | 2024-10-08 10:45 | DI.RAD_ITS ---
Exam(s) XR SHOULDER RT COMPLETE 2+V EXAM: XR SHOULDER RT COMPLETE 2+V CLINICAL HISTORY: F/U RIGHT RTSA. TECHNIQUE: 2D digital imaging was performed. Five images were obtained. Axillary, Y and Grashey vie ws were obtained. COMPARISON: CR XR SHOULDER RT COMPLETE 2+V from 04/01/2024 FINDINGS: BONES: There are stable post operative changes of a right total reverse shoulder arthroplasty present . No fracture or dislocation. JOINTS: The orthopedic hardware is in good position. No evidence of hardware loosening. SOFT TISSUE: Dystrophic calcifications are seen adjacent to the acromioclavicular joint. IMPRESSION: Stable right reverse total shoulder arthroplasty. DATA REPOSITORY: RADIATION DOSE DELIVERED:
== END 2024-10-08 11:01 | disposition home or self-care (01) ==
LOC: DIORS 11:01
PROVIDERS: Visit Provider Student in an Organized Health Care Education/Training Program
DX: M75.101 Unspecified rotator cuff tear or rupture of right shoulder, not specified as traumatic (principal); M12.811 Other specific arthropathies, not elsewhere classified, right shoulder; Z47.1 Aftercare following joint replacement surgery; Z96.611 Presence of right artificial shoulder joint
CPT/HCPCS: 99214; 73030

== ENCOUNTER 2024-11-13 21:25 | Outpatient (REF) | payer OTHER, SELFPAY ==
[2024-11-13 15:40] LABS: HCT 37.8 % (40.0-50.0); HGB 12.6 g/dL (13.5-17.5); MCHC 33.3 % (32.0-36.0); MCV 93 fL (80-95); Platelet Count 201 10^3/uL (130-400); RBC 4.06 10^6/uL (4.36-5.78); RDW 14.6 % (11.8-14.1); RDW-SD 49.2 fL; WBC 6.68 10^3/uL (4.4-10.8)
[2024-11-13 16:26] LABS: Anion Gap 7.1 mmol/L (3-11); BUN 19 mg/dL (7-18); CO2 28.9 mmol/L (21.0-32.0); CREATININE 0.9 mg/dL (0.70-1.30); Calcium 9.2 mg/dL (8.5-10.1); Chloride 106 mmol/L (98-107); Estimated GFR 89.62 (mL/min/1.73m2); Glucose 98 mg/dL (74-106); Potassium 4.1 mmol/L (3.5-5.1); Sodium 142 mmol/L (136-145)
== END 2024-11-13 21:26 | disposition home or self-care (01) ==
LOC: LBN 21:25
PROVIDERS: Visit Provider Student in an Organized Health Care Education/Training Program
DX: M16.12 Unilateral primary osteoarthritis, left hip (principal); Z01.818 Encounter for other preprocedural examination
CPT/HCPCS: 80048; 85027

== ENCOUNTER 2024-11-25 05:59 | Day surgery (SDC) | payer OTHER, SELFPAY ==
[2024-11-25] VITALS (15 sets, daily range): BP systolic 99–117; BP diastolic 48–82; PULSE 63–101; RESP 10–20; TEMP 36.1–36.6; O2SAT 93–99; BMI 26.5
[2024-11-25] MEDS: Celecoxib 200 MG CAP 400 MG PO (06:35)
[2024-11-25] MEDS: Acetaminophen 500 MG TAB 1000 MG PO (06:35)
[2024-11-25] MEDS: Lactated Ringers 1,000 ML 80 ML IV (07:00)
--- NOTE | 2024-11-25 07:05 | W.PM.DSUDISC ---
Date of service: 11/25/24 Discharge Plan Disposition Patient Disposition: Home Condition: Good Discharge Details Reason For Visit: Left hip DJD Attending Provider: Logan Novak Home Meds and New Rx's Prescriptions: New celecoxib [Celebrex] 200 mg capsule 200 mg PO BID PRNQty: 60 0RF Rx Instructions: Take one tablet twice daily for pain and inflammation aspirin 81 mg tablet,delayed release (DR/EC) 81 mg PO BID 30 Days Qty: 60 0RF acetaminophen 500 mg tablet 1,000 mg PO Q8H PRN Qty: 90 0RF Rx Instructions: Take two tablets up to every 8 hours as needed for pain dexamethasone 4 mg tablet 4 mg PO DAILY Qty: 2 0RF Rx Instructions: Take one tablet once daily for two days docusate sodium [Colace] 100 mg capsule 100 mg PO BID Qty: 28 0RF oxycodone 5 mg tablet 5 mg PO Q6H PRNQty: 12 0RF Rx Instructions: Take one tablet up to every 6 hours as needed for severe postoperative pain Continued methotrexate sodium 2.5 mg tablet 15 mg PO QWEEK Patient Comments: takes 3 in the am and 3 at night. 01/29/24 jwo albuterol sulfate [Ventolin HFA] 90 mcg/actuation HFA aerosol inhaler 1 inh inhalation ONCE fluticasone propionate 50 mcg/actuation spray,suspension 1 spray intranasal DAILY PRN Rx Instructions: administer into each nostril latanoprost 0.005 % drops 1 drp ophthalmic (eye) HS ropinirole 1 mg tablet 1 mg PO QHS Rx Instructions: administer 1-3 hours before bedtime folic acid 1 mg tablet 1 mg PO DAILY donepezil 10 mg tablet 10 mg PO HS hydroxychloroquine 200 mg tablet 200 mg PO BID rosuvastatin 5 mg tablet 5 mg PO DAILY turmeric 400 mg capsule 400 mg PO DAILY omega 4-avl-zbz-fish oil [Fish Oil] 60-90-500 mg capsule 1 cap PO HS cholecalciferol (vitamin D3) 25 mcg (1,000 unit) capsule 25 mcg PO DAILY gabapentin 300 mg capsule 300 mg PO QHS dorzolamide-timolol 22.3-6.8 mg/mL drops 1 drp ophthalmic (eye) BID omeprazole 20 mg capsule,delayed release(DR/EC) 20 mg PO DAILY lidocaine [Lidoderm] 5 % adhesive patch,medicated 1 patch topical DAILY Qty: 15 0RF Rx Instructions: leave on most painful area for up to 12 hrs cyclobenzaprine 10 mg tablet 10 mg PO HS PRN (Reason: muscle spasm) Qty: 7 0RF prazosin 5 mg Capsule 20 mg PO HS tamsulosin 0.4 mg Capsule 0.4 mg PO HS duloxetine 60 mg Capsule, Delayed Rel Sprinkle 60 mg PO HS Discontinued acetaminophen [Tylenol Arthritis] 650 MG tablet extended release 650 mg PO PRN Discharge Instructions Additional Instructions: Total Hip Discharge Instructions Activity: The most important activity is to walk. You should try to take short walks a few times a day. You have no restrictions on movement or positioning, but do not try to force what you do. You will find some stiffness and weakness with hip flexion (lifting your knee). Do not try to strengthen this too early, continue to practice walking and stairs and this will come. - Outpatient physical therapy can be helpful to help return you to a normal gait and improve your flexibility and strength. This can start around 2 weeks. For some patients, it?s not necessary. Usually this is determined at the time of discharge or at the first post-operative visit. - You should wear the SHANA hose on both legs for 2 weeks. Dressing: Keep the surgical dressing in place for at least one week. After the first week it may be removed and replace with light gauze and tape or nothing. It may get wet after 3 days but avoid soaking the dressing. If it gets wet, just lightly pat dry. It is important to always keep some gauze between skin folds, especially when you are sitting. Spend some time with the wound exposed when you are lying flat as the incision does wrinkle onto itself. Medications: - You should take Tylenol and an anti-inflammatory Celebrex as your primary pain control medications. If the Celebrex is too expensive or not covered, please call the office for another alternative (Advil/Ibuprofen or Naproxen/Aleve). - You have been prescribed a stronger pain medication Oxycodone for breakthrough pain, take as needed as prescribed. - You take a stomach acid reduction agent Omeprazole at baseline - continue with this medication to help reduce stomach acid and reflux. - You have also been prescribed Decadron to help with post-operative nausea and pain. You will take this for two days starting tomorrow. - You will be taking Aspirin 81mg twice a day for DVT prevention unless instructed otherwise. - If you have constipation you should take Colace (which has been prescribed) or Miralax (which is available [id number]). It takes most people 3-4 days to have a bowel movement. Follow-up: 2 weeks If you have any acute concerns or questions, please do not hesitate to contact the office at [phone]. You may contact Dr. Novak with any questions after hours through the hospital at [phone] or on his cell phone at [phone]. Referrals: Logan Novak MD [ [facility] STAFF PHYSICIAN, Orthopaedic Surgical] Equipment/Supplies: Walker Activity:: Elevate Remove Dressings/Wound Care:: Do Not Remove Shower/Bathe:: Cover Diet:: As Tolerated Discharge Orders Discharge Orders: Discharge Order (Routine); Ordered 11/25/24 Ordered By: Brooklyn Harper
--- NOTE | 2024-11-25 07:19 | W.ANESPRE ---
General Info Date of Service Date Performed: 11/25/24 Height: 5 ft 6.5 in Weight: 75.7 kg Body Mass Index (BMI): 26.5 Surgical Procedure: Operation Date: 11/25/24 07:50 Proposed Procedure Side Surgeon p Hip Total Hip Anterior Left Logan Novak MD Actual Procedure Side Surgeon p Hip Total Hip Anterior Left Logan Novak MD Pre-Op Diagnosis Post-Op Diagnosis Osteoarthritis of left hip Meds Allergies and Home Medications Allergies Allergy/AdvReac Type Severity Reaction Status Date / Time gluten AdvReac Intermediate Other (See Verified 11/25/24 06:07 Comment) morphine AdvReac Mild HALLUNCINAT Verified 11/25/24 06:07 IONS Home Medication ?Medication ?Instructions ?Recorded cyclobenzaprine 10 mg tablet 10 mg PO HS PRN muscle spasm #7 01/21/22 tabs lidocaine 5 % topical patch 1 patch topical DAILY #15 ea 01/21/22 (Lidoderm) duloxetine 60 mg capsule,delayed 60 mg PO HS 03/05/22 release sprinkle prazosin 5 mg capsule 20 mg PO HS 03/05/22 tamsulosin 0.4 mg capsule 0.4 mg PO HS 03/05/22 cholecalciferol (vitamin D3) 25 25 mcg PO DAILY 07/17/23 mcg (1,000 unit) capsule donepezil 10 mg tablet 10 mg PO HS 07/17/23 folic acid 1 mg tablet 1 mg PO DAILY 07/17/23 hydroxychloroquine 200 mg tablet 200 mg PO BID 07/17/23 omega 1-[id number]-fish oil 60 mg-90 1 cap PO HS 07/17/23 mg-500 mg capsule (Fish Oil) rosuvastatin 5 mg tablet 5 mg PO DAILY 07/17/23 turmeric 400 mg capsule 400 mg PO DAILY 07/17/23 gabapentin 300 mg capsule 300 mg PO QHS 01/16/24 methotrexate sodium 2.5 mg tablet 15 mg PO QWEEK 01/29/24 dorzolamide 22.3 mg-timolol 6.8 1 drp ophthalmic (eye) BID 09/30/24 mg/mL eye drops omeprazole 20 mg capsule,delayed 20 mg PO DAILY 09/30/24 release albuterol sulfate 90 mcg/actuation 1 inh inhalation ONCE 11/13/24 aerosol inhaler (Ventolin HFA) fluticasone propionate 50 1 spray intranasal DAILY PRN 11/13/24 mcg/actuation nasal spray,suspension latanoprost 0.005 % eye drops 1 drp ophthalmic (eye) HS 11/13/24 ropinirole 1 mg tablet 1 mg PO QHS 11/13/24 acetaminophen 500 mg tablet 1,000 mg (2 x 500 mg) PO Q8H PRN 11/25/24 pain #90 tabs aspirin 81 mg tablet,delayed 81 mg PO BID 30 days #60 tabs 11/25/24 release celecoxib 200 mg capsule (Celebrex) 200 mg PO BID PRN #60 caps 11/25/24 dexamethasone 4 mg tablet 4 mg PO DAILY #2 tabs 11/25/24 docusate sodium 100 mg capsule 100 mg PO BID #28 caps 11/25/24 (Colace) oxycodone 5 mg tablet 5 mg PO Q6H PRN #12 tabs 11/25/24 Current Visit Medications: Current Medications Generic Name Dose Route Start Last Admin Trade Name Mell PRN Reason Stop Dose Admin Acetaminophen 1,000 mg 11/25/24 06:00 11/25/24 06:35 Acetaminophen 500 Mg Tab PO 12/24/24 23:59 1,000 mg PREOP CARLOS Administration Celecoxib 400 mg 11/25/24 06:00 11/25/24 06:35 Celecoxib 200 Mg Cap PO 12/24/24 23:59 400 mg PREOP CARLOS Administration Hydromorphone HCl 0.5 mg 11/25/24 07:04 Hydromorphone 2 Mg/Ml Syr IVP 12/25/24 07:03 Q2H PRN PRN Ringer's Solution 1,000 mls @ 80 mls/hr 11/25/24 06:00 11/25/24 07:00 IV 12/24/24 23:59 80 mls/hr INFUSION CARLOS Administration Cefazolin Sodium/Dextrose 2 gm in 50 mls @ 100 mls/hr 11/25/24 06:00 Ancef Duplex IVPB 12/24/24 23:59 PREOP CARLOS Tranexamic Acid/Sodium Chloride 1,000 mg in 100 mls @ 600 mls/hr 11/25/24 06:00 IVPB 12/24/24 23:59 PREOP CARLOS Cefazolin Sodium/Dextrose 1 gm in 50 mls @ 100 mls/hr 11/25/24 08:00 Ancef Duplex IVPB 11/26/24 00:29 Q8H CARLOS IV Miscellaneous Supplies 1 each 11/25/24 06:00 Iv Access IV 12/24/24 23:59 DIRECTED CARLOS Oxycodone HCl 0 mg 11/25/24 07:04 Oxycodone 5 Mg Tab PO 12/25/24 07:03 Q3H PRN PRN Pain Sodium Chloride 0 ml 11/25/24 06:00 Normal Saline Flush 10 Ml Syr IV 12/24/24 23:59 PRN PRN Sodium Chloride 0 ml 11/25/24 06:00 Normal Saline 10 Ml Vial IJ 12/24/24 23:59 DIRECTED PRN Sterile Water 0 ml 11/25/24 06:00 Water,Injection,Sterile 10 Ml Vial IJ 12/24/24 23:59 DIRECTED PRN Tranexamic Acid 1,300 mg 11/25/24 07:04 Tranexamic Acid 650 Mg Tab PO 12/25/24 07:03 ONCE PRN postoperative PFSH Active Problems Active Problems: Problem Status Onset Code Osteoarthritis of left hip Chronic M16.12 Rotator cuff tear arthropathy of right shoulder Acute M75.101, M12.811 Cubital tunnel syndrome on right Acute G56.21 Medical History Medical History Secondary osteoarthritis Problems in relationship with spouse or partner Periodic limb movement disorder Pain in unspecified wrist Pain in right knee Other polyosteoarthritis Other microscopic hematuria Other male erectile dysfunction Occupational exposure to other air contaminants Mild obstructive sleep apnea Mild cognitive impairment of uncertain or unknown etiology Major depressive disorder, single episode Insomnia, unspecified Gastro-esophageal reflux disease without esophagitis Dysphagia, pharyngoesophageal phase Contact with and (suspected) exposure to other hazardous substances Calculus of kidney Arthropathic psoriasis, unspecified Closed dislocation of right glenohumeral joint Hill Sachs deformity, right Injury of right brachial plexus PTSD (post-traumatic stress disorder) Pt. states no potential triggers Arthritis Medical History Comments:: pt. reports whole body sweat when he has a PTSD event Surgical History Surgical History Hx of total shoulder replacement R reverse total History of Yanira fundoplication S/P right knee arthroscopy History of bowel resection 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 Tobacco Smoking/Tobacco Use Status: Former Tobacco Use Alcohol Alcohol Intake: former Substance Use Substance use: Never Substance use type: does not use Vital Signs and Lab Results Vital Signs Most Recent Vital Signs in EMR: Most Recent Vital Signs Temp Pulse Resp BP Pulse Ox 36.6 C 63 20 103/72 97 11/25/24 06:20 11/25/24 06:20 11/25/24 06:20 11/25/24 06:20 11/25/24 06:20 Lab Results Complete Blood Count: WBC, (4.4-10.8) 6.68 10^3/uL 11/13/24, 14:40 RBC, (4.36-5.78) 4.06 10^6/uL L 11/13/24, 14:40 Hgb, (13.5-17.5) 12.6 g/dL L 11/13/24, 14:40 Hct, (40.0-50.0) 37.8 % L 11/13/24, 14:40 Plt Count, (130-400) 201 10^3/uL 11/13/24, 14:40 Complete Metabolic Panel: Sodium, (136-145) 142 mmol/L 11/13/24, 14:40 Potassium, (3.5-5.1) 4.1 mmol/L 11/13/24, 14:40 Chloride, (98-107) 106 mmol/L 11/13/24, 14:40 Carbon Dioxide, (21.0-32.0) 28.9 mmol/L 11/13/24, 14:40 BUN, (7-18) 19 mg/dL H 11/13/24, 14:40 Creatinine, (0.70-1.30) 0.9 mg/dL 11/13/24, 14:40 Est GFR (CKD-EPI 2020), (mL/min/1.73m2) 89.62 11/13/24, 14:40 Calcium, (8.5-10.1) 9.2 mg/dL 11/13/24, 14:40 Glucose, (74-106) 98 mg/dL 11/13/24, 14:40 Anesthesia Assessment and Plan Anesthesia History Personal History: No History of Anesthesia Complications Family History: No Family History of Anesthesia Complications Exercise Tolerance Exercise Tolerance: Metabolic Equivalents>4 Pertinent Negatives Pertinent Negatives: No Symptoms of GERD Cardiac & Pulmonary Exam Cardiac Exam: Normal S1/S2 Heart Sounds Pulmonary Exam: Clear Bilateral Breath Sounds Implantable Cardiac Device Does patient have a Pacemaker or an ICD?: No Airway Exam Known Difficult Airway: No Mallampati Class: 1 Mouth Opening: Normal (> 3cm) Thyromental Distance: Greater than 3 cm Neck Range of Motion: Full ROM Neck Circumference: Normal Teeth Condition: Normal Dentition ASA Classification ASA Score: ASA 2 Emergency Case?: No NPO Status NPO Status: NPO Clears >2 hours, Solids >8 hours Anesthesia Plan Resuscitation Status: Full Code Anesthesia Technique: Spinal Anesthesia Airway Planned: Natural Airway Pain Management: Intrathecal Analgesia Monitors Used: Standard Monitors
--- NOTE | 2024-11-25 07:51 | W.PM.OP ---
Operative Note Operative Note PRE-OP DIAGNOSIS: Left Hip Osteoarthritis POST-OP DIAGNOSIS: same PROCEDURE: Left Anterior Total Hip Arthroplasty with Intraoperative Navigation SURGEON: Logan Novak PHOTONICS TECHNICIAN: Brooklyn Harper ANESTHESIA TYPE: Spinal Refer to Anesthesia Record ESTIMATED BLOOD LOSS: 300 PATHOLOGY: none sent TOURNIQUET TIME: 0 COMPLICATIONS: None Patient was transported to: PACU Patient's condition: stable Implants: 1. Depuy Shiloh Acetabular Component, 54mm 2. Depuy Acetabular Liner, [id number] 3. Depuy Actis Standard Collared Femoral Stem, Size 6 4. Depuy Altrx Ceramic Femoral Head, Size 36+5mm Indications: I have seen Fabiano in clinic for symptoms of hip arthritis, confirmed with radiographic findings. He has exhausted nonoperative methods and was having significant limitations in daily function and desired better function and less pain. I discussed the technical details of a hip replacement. I explained the risks of the procedure to include, but not limited to, bleeding, infection, pain, stiffness, fracture, damage to nerves and vessels, damage to muscles and tendons, loosening, instability, leg length inequality, need for repeat procedure, blood clot and cardiopulmonary demise. Despite these risks, Fabiano elected to proceed. Findings: There was significant signs of arthritis throughout the hip. Procedure Description: Fabiano was greeted in the preoperative holding area where the correct side was identified and marked. The consent was reviewed with the patient and signed. The history and physical was updated. All questions were answered. He was taken back to the operating room. A spinal anesthestic was then administered. The feet were wrapped with cast padding and Coban and then placed into the boot liners and then into the boots. Care was taken to protect the skin and make sure the heels were fully down and the boots were stable. The patient was then positioned onto the HANA table. Both legs were held in a neutral position. SCDs were applied. The patient was then slid down onto a peroneal post. Prophylactic antibiotics in the form of Cefazolin were administered. 1g of Tranxemic Acid was given intravenously within 30 minutes of incision. The left leg was then prepped with Chloraprep and draped in a standard fashion. A second prep with Chloraprep was performed prior to placement of a shower-curtain type drape with Iodine impregnated skin protection. A timeout to confirm correct identity, side and site, procedure, allergies, anesthesia, and medical concerns was performed. An obliquely oriented incision was made starting lateral to the ASIS and running distal over the Tensor Fascia Katty (TFL) muscle belly toward the fibular head, approximately 10cm. The skin and soft tissue was dissected sharply, through Ayad?s fascia, and to the fascia of the TFL. With the fascia and superior border of the IT band identified, the fascia was incised with a new knife just above any perforators from the IT band. The TFL muscle belly was bluntly dissected away from the fascia and moved laterally. The fat between TFL and rectus was identified to ensure the dissection was not within the TFL. Blunt dissection created space between abductors and the capsule and retractor was placed over the lateral femoral neck. The fibers of the rectus femoris tendon were identified and these were freed from the anterior capsule. A second cobra retractor was placed around the medial femoral neck. The TFL was further retracted laterally to show the deep fascia. Careful dissection through this layer identified three main crossing vessels of the lateral femoral circumflex. These were cauterized in multiple locations and then cut without any noticeable bleeding. The TFL was further released bluntly from the deep fascia to expose anterior hip capsule and fat The soft tissue orthopaedic retractor was then placed beneath the TFL and against sartorius and medial soft tissues to protect and retract the soft tissues. A T-capsulotomy was then performed starting at the superior lateral acetabulum and moving distally to the intertrochanteric ridge. These capsular flaps were tagged with a No. 1 Vicryl and elevated from within. The capsular flaps were released to the shoulder of the lateral neck and to the lesser trochanter to give excellent visualization of the proximal femur. A neck osteotomy was performed using an oscillating saw based on preoperative templates. This cut started in the shoulder and of the lateral neck and exited medially. The saw was at all times directed medially to avoid injury to the greater trochanter. Gross traction was applied to the leg and the osteotomy opened. The femoral head was removed with a corkscrew, making sure to protect the TFL on its exit. Traction was released after head removal. This was measured on the back table to determine the starting reamer size. Portions of the rectus obscuring visualization were minimally elevated off the superior acetabulum. An anterior retractor was placed over the anterior wall between capsule and labrum and attached to the Gripper retraction system. The femur was rotated to 90 degrees and medial capsule was fully released until the lesser trochanter was palpable and visible; the femur was returned to 30 degrees. A posterior retractor was placed similarly between capsule and labrum. This provided excellent visualization. The contents of the cotyloid fossa were removed with electrocautery and the labrum was removed with a knife. There was significant chondromalacia of the superior acetabulum. Acetabular reaming began with a 48mm reamer. This first reaming was directed anterior to posterior and medial to get down to the true floor. This was inspected and reamed until the true floor was reached. The anterior retractor was then released and entry and exit was provided by traction on the capsular flaps. I then reamed sequentially up to a 54mm reamer where good fit was obtained. The larger reamers were oriented based on anatomical reference of the anterior and lateral macdonald to ensure proper abduction and anteversion. Positioning and size was confirmed with the fluoroscopy. A 54mm Depuy Shiloh acetabular component was selected. The acetabulum was reamed around the periphery with the selected acetabular size to prevent a rim fit. The deep tissues were irrigated. The acetabular component was then impacted in a position of about 40-45 degrees of abduction and 15-20 degrees of anteversion, using the patient?s anatomy as the ultimate landmark. Fluoroscopy was used to confirm this. There was excellent finished cloth checker of the acetabular component and the inserting handle was removed. The acetabular liner, Depuy [id number] polyethylene liner, was inserted and lined up with the tines of the acetabular component. There was no soft tissue interposition. The liner was then impacted into position and confirmed to be well-seated. A portion of the norma-articular cocktail was then injected around the acetabulum into the capsule and periosteum. This cocktail consisted of 123mg of Ropivacaine, 0.25mg of Epinephrine, 0.04mg of Clonidine, and 15mg of Ketorolac, diluted to 50cc. The leg was rotated to 120 degrees. Any remaining medial capsule was released until the lesser trochanter was easily palpable. A retractor was placed medially. The lateral capsule was further released into the shoulder to allow access to the greater trochanter. A Frazier retractor was placed over the greater trochanter which allowed the trochanter to flip in front of the capsule for excellent exposure. The leg was brought down into maximal extension and 20 degrees of adduction while ensuring there was no impingement on the acetabulum. Any remnant capsule within the trochanter was released. Piriformis and obturator externis were identified and protected. There was excellent access to the proximal femur. The lateral neck remnant was removed with a rongeur. A blunt canal probe was used to identify the canal and trajectory for later broaching. A box osteotome initiated the broach course. A small curved rasp and a curved curette were used to work laterally. Broaching then began with a starter Actis broach. This was inserted manually around the trochanter and into the canal before mallet blows. The broach was seated to a few millimeters below the cut level based on the neck cut and the preoperative template. Sequential broaching was continued with the [employer] pneumatic broaching device until a tight fit was obtained with good rotational control of the femur. A trial standard neck was inserted along with a +5 trial head. The leg was brought out of extension and adduction and then reduced with traction and internal rotation. The leg was stable anteriorly in a position of 30 degrees of extension and 90 degrees of external rotation. Fluoroscopy was used to ensure there was no fracture and the stem was seated well. Leg lengths were checked with an AP pelvis and pelvic reference points. Concert Window navigation system was used to confirm appropriate positioning and leg length and offset. Once content with the desired offset and leg lengths, the leg was brought back into extension, external rotation and adduction. The periosteum and surrounding tissue was injected with remaining portion of the norma-articular cocktail. The proximal femur was irrigated as well as the deep tissues. The [employer] standard collared stem, size 6, was then manually inserted into the proximal femur making sure to control rotation. It was then malleted into position with light blows, giving breaks to allow bone expansion and decrease risk of fracture. The selected Depuy Altrx Ceramic Head, size 36+5mm, was then placed onto the clean and dry trunnion and secured with impaction onto the tapered fit. The leg was brought back out of extension and adduction and reduced with traction and internal rotation. Stability was confirmed with no shuck at 90 degrees of external rotation and 30 degrees of extension. No impingement through range of motion arc. Final x-ray images were obtained with fluoroscopy to confirm adequate positioning and no intraoperative fracture. The deep tissues were thoroughly irrigated with Surgiphor, betadine solution. This was allowed to sit in the wound for 3 minutes before being thoroughly irrigated out with normal saline. The capsule was then reapproximated with the previously placed sutures. The capsule was additionally closed with #1 Vicryl. The TFL fascia was finally closed with a No. 2 Stratafix, barbed suture. Deep tissues were then reapproximated with 0 Vicryl and a running 2-0 Vicryl. The skin was closed with a running 4-0 Monocryl in a subcuticular fashion. This was reinforced with skin glue. A Mepilex silver dressing was applied. At the end of the case, all counts were correct. Fabiano was transferred to the hospital bed without difficulty and suffering no apparent complication. He has a good prognosis. Physical therapy will start today and without restrictions, weight-bearing as tolerated. Aspirin 81mg BID will be used for DVT prophylaxis. Date of Procedure: 11/25/24
[2024-11-25] MEDS: ceFAZolin 2 GM/50 ML BAG IVPB (07:55)
[2024-11-25] MEDS: TRANEXAMIC ACID/SOD. CHL. 1,000 MG/100 ML BAG 600 MG IVPB (08:02)
--- NOTE | 2024-11-25 08:55 | DI.RAD_ITS ---
Exam(s) XR HIP LT IN OR EXAM: XR HIP LT IN OR CLINICAL HISTORY: Osteoarthritis of left hip. TECHNIQUE: 2D and realtime digital imaging was performed. COMPARISON: CR XR HIP LT COMPLETE AP PELVIS from 09/29/2024 FINDINGS: A hard copy image shows placement of a left hip prosthesis. The alignment appears satisfactory. Please see procedure note for details. Fluoro time: 21.2seconds RADIATION DOSE DELIVERED: Ka,r=1.95 mGy
--- NOTE | 2024-11-25 11:59 | PT.INIE ---
PT Notes Visit Reasons: Left hip DJD Physical Therapy Day Surgery Initial Evaluation Date:11/25/2024 Referring Doctor: Brooklyn Harper, RN [facility]/Dr. Novak PT Orders: PT CONSULT: Status post Ortho surgery Precautions: WBAT left LE Patient Profile/Admitting Diagnosis: Fabiano is a 74-year-old male presented status post elective left JASON on 11/25/[address] Novak under spinal anesthesia postop uncomplicated. PMHX: Osteoarthritis of left hip (Chronic) POCUS injection: 04/04/24Rotator cuff tear arthropathy of right shoulder (Acute) Cubital tunnel syndrome on right (Acute) Medical History (Updated 09/29/24 @ 14:08 by Brooklyn Harper) Secondary osteoarthritis Problems in relationship with spouse or partner Periodic limb movement disorder Pain in unspecified wrist Pain in right knee Other polyosteoarthritis Other microscopic hematuria Other male erectile dysfunction Occupational exposure to other air contaminants Mild obstructive sleep apnea Mild cognitive impairment of uncertain or unknown etiology Major depressive disorder, single episode Insomnia, unspecified Gastro-esophageal reflux disease without esophagitis Dysphagia, pharyngoesophageal phase Contact with and (suspected) exposure to other hazardous substances Calculus of kidney Arthropathic psoriasis, unspecified Closed dislocation of right glenohumeral joint Hill Sachs deformity, right Injury of right brachial plexus PTSD (post-traumatic stress disorder) Pt. states no potential triggers Arthritis Surgical History (Updated 10/05/23 @ 06:24 by Bryce Garcia) History of Yanira fundoplication S/P right knee arthroscopy History of bowel resection Replacement of total knee joint (08/03/08)LEFT KNEE Social History/Home Situation: Patient resides in a multilevel home with one-step to enter with grab bar. Patient has flight of stairs to bedroom with railing on the right which he uses both hands on 1 rail. Patient independent ADLs, ambulation with assistive devices depending on level of pain and independent management of pets within the home. Patient also independent with meal prep his is available to assist Equipment Owned/DME: 2 standard walkers, 1 4 wheeled walker, 3 FWW, 2 canes, walking poles Subjective: Patient reports she is doing well. He states he is always in some level of pain so this pain is much worse than what he usually has. Patient agreeable to participate in eval Objective: [] General Observation: Semireclined on stretcher with ice to left hip eating; present Mental Status: Alert and oriented x 4, cooperative, motivated, able to follow instructions Pain: Left hip 4?5/10 patient reports it is manageable and declined pain medicine ROM: [] BUE: Impaired bilateral shoulders and hands Right Lower Extremity: WFL Left Lower Extremity: Hip flexion approximately 95 degrees, abduction 10, internal rotation to neutral, knee and ankle within functional limits Strength: [] BUE: Shoulders grossly 3 -/5 elbows 3+/5 hand grasp fair Right Lower Extremity: Grossly 4/5 Left Lower Extremity: Hip flexion: 3 -/5; hip abduction: 3 -/5; hip extension: 3 -/5; knee extension: 3 /5; knee flexion: 3 -/5 ankle DF: 3/5 ; ankle PF: 3 /5 Sensation: Intact to light touch and pain Bed Mobility/Transfers: [] Supine to sit supervision Sit to stand SBA with cues for hand placement Stand to sit SBA with cues for hand placement Bed to chair SBA with FWW Gait: Patient ambulated with FWW initially contact-guard assist progressed to standby assist 100 feet step to pattern initially progressed to slight step through with noted reduced step length positive Trendelenburg pattern left Stairs: Two 6 inch steps and three 4 inch steps x 2 trials with 1 rail contact-guard assist, step to pattern. Patient performed 1 step with FWW to simulate entrance into home without railing required min assist for FWW placement able to assist. Balance: [] Static Sitting: Normal Dynamic Sitting: Good Static Standing: Good Dynamic Standing: Fair plus Special Tests: [] Mobility Limitations Standardized Measure [] [facility] AM-PAC 6 clicks Basic Mobility Inpatient Short Form: [] Raw Score: 22 CMS Score: 20.91% Informed Consent/Education: Patient instructed in purpose of PT consult. Packet containing JASON exercise protocol has been given to patient. Education and training on initial set of exercises that can be done at home have been completed with patient. Treatment: [id number] functional transfers and ambulation with 4 wheeled walker standby assist level. Ambulated 40 feet x 2 with good use of brakes and ability to manage/control 4WW. Patient demonstrates safe hand technique with use of brakes for transfers. present and reports this is his baseline. Assessment: Patient is a 74-year-old male who presents with clinical signs and symptoms consistent with current/admitting diagnoses that have resulted to mobility limitations, gait instability, generalized weakness, and impairment of motor control as demonstrated by the following impairment level findings: 1. Decreased strength to left LE major muscle groups 2. Impaired standing balance 3. Limitation of joint range of motion in left hip, bilateral shoulders, bilateral hands 4. Pain left hip 5. Impaired functional activity tolerance Impairments are contributing to the following functional limitations: 1. Inability to safely ambulate without assistive device 2. Increase completion time for mobility ADL performance 3. Increased fall risk 4. Difficulty performing stairs without assistance Patient is assessed as a low complexity based on the following: History: 74-year-old male with impairment level findings, functional limitations, and past medical history as indicated above Examination: Demonstrable impairment in strength, balance, and mobility level with underlying impairments and functional limitations as documented above Presentation: Stable/evolving Decision Making: Low Goals: N/A. PT evaluation and 1-2 treatment sessions only for functional mobility training using recommended AD and for HEP instruction. Plan of Care/Treatment Plan: N/A. PT evaluation and 1-2 treatment session only for functional mobility training using recommended AD and for HEP instruction. DISCHARGE RECOMMENDATIONS: Home with home exercise program TREATMENT CODE/TIME:[id number], [id number] Thank you for the opportunity to participate in the care of this patient. Sakina Young, PT [facility]
--- NOTE | 2024-11-25 12:09 | W.ANESPOSTOP ---
Postoperative Evaluation Date, Time and Location Date Performed: 11/25/24 Time Performed: 12:09 Patient Location: Day Surgery Unit Vital Signs Most Recent Imported Vital Signs: Most Recent Vital Signs Temp Pulse Resp BP Pulse Ox 36.3 C L 70 20 107/64 99 11/25/24 10:18 11/25/24 10:18 11/25/24 10:18 11/25/24 10:18 11/25/24 10:18 Pain Score Most Recent Pain Score: Most Recent Pain Score Pain Level 5 11/25/24 10:18 Assessment Mental Status: Awake (Alert & Oriented to Patient Baseline) Airway and Respiratory Function: Patent airway with normal (patient baseline) respiratory exam Cardiovascular Function: Hemodynamically Stable Hydration Status: Adequately Hydrated Nausea & Vomiting: No Nausea or Vomiting Pain: Pain is tolerable per patient (Does not wish to be any more comfortable.) Peripheral Nerve Block: Patient did not receive a nerve block
== END 2024-11-25 12:10 | disposition home or self-care (01) ==
PROVIDERS: Visit Provider Student in an Organized Health Care Education/Training Program
PROC: (CPT 27130; principal; 2024-11-25 07:30)
DX: M16.12 Unilateral primary osteoarthritis, left hip (principal)
CPT/HCPCS: 27130; 20985; 97161; 97530; 73501; C1776; J0690; J1100; J2003; J2250; J2401; J2405; J2704

== ENCOUNTER 2024-12-08 15:24 | Outpatient (CLI) | payer OTHER, SELFPAY ==
--- NOTE | 2024-12-08 10:15 | DI.RAD_ITS ---
Exam(s) XR HIP LT COMPLETE AP PELVIS EXAM: XR HIP LT COMPLETE AP PELVIS CLINICAL HISTORY: 1ST POST OP S/P L JASON. TECHNIQUE: 2D digital imaging was performed. Two images were obtained. AP pelvis and lateral views were obtained. COMPARISON: CR XR HIP LT COMPLETE AP PELVIS from 09/29/2024 XA XR HIP LT IN OR from 11/25/2024 FINDINGS: BONES: There are stable post operative changes of a left total hip arthroplasty present. No fracture or dislocation. JOINTS: The orthopedic hardware is in good position. No evidence of hardware loosening. SOFT TISSUE: Normal. IMPRESSION: Stable left total hip arthroplasty. DATA REPOSITORY: RADIATION DOSE DELIVERED:
== END 2024-12-08 15:25 | disposition home or self-care (01) ==
LOC: DIORS 15:24
PROVIDERS: Visit Provider Student in an Organized Health Care Education/Training Program
DX: Z96.642 Presence of left artificial hip joint (principal)
CPT/HCPCS: 73502